=== PATIENT | female | born 1985 | race Caucasian/White ===

== ENCOUNTER 2017-12-17 04:58 | Emergency (ER) | payer MEDICAID ==
[~2017-12-17] VITALS: Ht 162.6 cm; Wt 61.9 kg
[2017-12-17 05:40] VITALS: BP 154/93
== END 2017-12-17 05:41 | disposition home or self-care (01) ==
LOC: ER 05:00
DX: I10 Essential (primary) hypertension (principal); F15.10 Other stimulant abuse, uncomplicated; F17.200 Nicotine dependence, unspecified, uncomplicated; Z88.6 Allergy status to analgesic agent
CPT/HCPCS: 99281

== ENCOUNTER 2018-01-05 05:15 | Emergency (ER) | payer MEDICAID ==
[~2018-01-05] VITALS: Ht 162.6 cm; Wt 59.0 kg
[2018-01-05] MEDS ORDERED: predniSONE 20 mg tablet PO ONE (07:55)
[2018-01-05] MEDS ORDERED: CefTRIAXone 250MG inj IM ONE (11:25)
[2018-01-05] MEDS ORDERED: azithromycin 250mg tablet PO ONE (11:25)
[2018-01-05] MEDS ORDERED: CefTRIAXone 250MG IM Kit w/LIDOcaine IM ONE (11:30)
[2018-01-05] MEDS ORDERED: VALA10002 PO (13:41)
[2018-01-05] MEDS ORDERED: ACYC5CRE2 TP (13:41)
[2018-01-05 14:09] VITALS: BP 127/86
== END 2018-01-05 14:11 | disposition left against medical advice (07) ==
LOC: ER 05:16
DX: A60.00 Herpesviral infection of urogenital system, unspecified (principal); I10 Essential (primary) hypertension; F15.10 Other stimulant abuse, uncomplicated; Z88.6 Allergy status to analgesic agent
CPT/HCPCS: 36415; 87210; 87491; 87591; 96372; 99284; J0696; J7512

== ENCOUNTER 2018-10-29 08:49 | Emergency (ER) | payer MEDICAID ==
[~2018-10-29] VITALS: Ht 162.6 cm; Wt 62.0 kg
[~2018-10-29 08:49] MED LIST: VALA10002 PO
[2018-10-29 09:06] VITALS: BP 145/97
[2018-10-29] MEDS ORDERED: AZIT-63 PO (10:32)
[2018-10-29] MEDS ORDERED: ALBU18HF2 INH (10:32)
== END 2018-10-29 11:17 | disposition home or self-care (01) ==
LOC: ER 08:49
DX: J20.9 Acute bronchitis, unspecified (principal); F15.10 Other stimulant abuse, uncomplicated; I10 Essential (primary) hypertension; Z88.5 Allergy status to narcotic agent; Z79.899 Other long term (current) drug therapy
CPT/HCPCS: 99283

== ENCOUNTER 2021-07-03 16:20 | Emergency (ER) | payer MEDICAID ==
[~2021-07-03] VITALS: Ht 162.6 cm; Wt 59.1 kg
[~2021-07-03 16:20] MED LIST changes: +ALBU18HF2 INH
[2021-07-03 17:14] VITALS: BP 130/89
[2021-07-03] MEDS ORDERED: ALBU6.7H9 INH (18:23)
[2021-07-03] MEDS ORDERED: IBUP-1984 PO (18:23)
[2021-07-03] MEDS ORDERED: DEXA4TAB67 PO (18:23)
--- NOTE | 2021-07-03 19:35 | NUR ---
CALLED AND LEFT MSG FOR PT TO CALL US BACK FOR LAB RESULTS - SHE IS COVID POSITIVE BUT THIS INFO WAS NOT LEFT ON VOIC[employer] FOR PRIVACY PURPOSES
== END 2021-07-03 19:04 | disposition home or self-care (01) ==
LOC: ER 16:20
DX: U07.1 COVID-19 (principal); F15.10 Other stimulant abuse, uncomplicated; I10 Essential (primary) hypertension; Z88.5 Allergy status to narcotic agent; Z79.899 Other long term (current) drug therapy
CPT/HCPCS: 71045; 87635; 99284; C9803

== ENCOUNTER 2021-07-06 13:24 | Inpatient (IN) | payer MEDICAID ==
[~2021-07-06] VITALS: Ht 162.6 cm; Wt 59.1 kg
[~2021-07-06 13:24] MED LIST changes: +ALBU6.7H9 INH; +DEXA4TAB67 PO; +IBUP-1984 PO
[2021-07-06] MEDS ORDERED: normal saline 1000ml 1,000 ML IV ONE ×4 (15:15→18:20)
[2021-07-06] MEDS ORDERED: diazepam inj 5 MG/ML inj. IV ONE (15:30)
[2021-07-06 17:18] LABS: BASOPHILS # (AUTO) 0.1 X10'3 (0-0.2); BASOPHILS % (AUTO) 0.8 % (0-1); EOSINOPHILS % (AUTO) 0 % (0-6); HEMATOCRIT 35.1 % (35.0-45.0); HEMOGLOBIN 11.8 g/dl (12.0-16.0); LYMPHOCYTES # (AUTO) 0.5 X10'3 (1.1-4.8); LYMPHOCYTES % (AUTO) 3.6 % (21-51); MEAN CORPUSCULAR HEMOGLOBIN 29.1 PG (27.0-31.0); MEAN CORPUSCULAR HGB CONC 33.5 g/dL (33.0-36.5); MEAN CORPUSCULAR VOLUME 86.8 FL (78-98); MONOCYTES # (AUTO) 0.4 X10'3 (0-0.9); MONOCYTES % (AUTO) 2.9 % (2-12); NEUTROPHILS # (AUTO) 13.7 X10'3 (1.8-7.7); NEUTROPHILS % (AUTO) 92.7 % (42-75); PLATELET COUNT 152 X10'3 (140-440); RED BLOOD COUNT 4.04 X10'6 (4.20-5.60); RED CELL DISTRIBUTION WIDTH 14.3 % (11.5-14.5); WHITE BLOOD COUNT 14.8 X10'3 (4.5-11.0)
[2021-07-06 17:32] LABS: D-DIMER 3.23 MG/L FEU (0-0.50)
[2021-07-06 17:34] LABS: ALANINE AMINOTRANSFERASE 19 U/L (12-78); ALBUMIN 2.9 G/DL (3.4-5.0); ALBUMIN/GLOBULIN RATIO 0.7 (1.1-1.5); ALKALINE PHOSPHATASE 74 IU/L (46-116); ANION GAP 14 (8-16); ASPARTATE AMINO TRANSFERASE 29 U/L (10-37); BILIRUBIN,TOTAL 0.4 MG/DL (0.1-1.0); BLOOD UREA NITROGEN 29 MG/DL (7-18); BUN/CREATININE RATIO 12.2 (6.6-38.0); CALCIUM 7.4 MG/DL (8.5-10.1); CHLORIDE 101 MMOL/L (99-107); CREATININE 2.37 MG/DL (0.40-0.90); GLUCOSE 95 MG/DL (70-104); POTASSIUM 3.7 MMOL/L (3.5-5.1); SODIUM 135 MMOL/L (135-145); TOTAL CARBON DIOXIDE 19.8 MMOL/L (24-32); eGFR 23 ML/MIN
[2021-07-06 17:38] LABS: HCG SERUM QL NEGATIVE
[2021-07-06] MEDS ORDERED: HYDROmorphone 1 mg/ml syringe IV ONE (17:45)
[2021-07-06 17:47] LABS: C-REACTIVE PROTEIN 24.92 MG/DL (0.0-0.5); FERRITIN 261 NG/ML (8-252); LACTATE DEHYDROGENASE 251 U/L (81-234)
[2021-07-06] MEDS ORDERED: iohexol 350MG/ML 100ml bottle IV ONE (18:35)
[2021-07-06] MEDS ORDERED: NO HOME MEDS (20:38)
--- NOTE | 2021-07-06 20:39 | NUR ---
pt states does not take home medication and does not like to take pills. pt states she did not fill previous rx from previous er visit.
[2021-07-06] MEDS ORDERED: magnesium 4gm in 100ml NS 100 ML IV PRN (20:50)
[2021-07-06] MEDS ORDERED: potassium Cl 40MEQ/1/2NS 520ml 520 ML IV PRN ×2 (20:50)
[2021-07-06] MEDS ORDERED: potassium Cl 20 mEq SR tablet PO PRN ×2 (20:50)
[2021-07-06] MEDS ORDERED: acetaminophen 325mg tablet PO PRN ×2 (20:50)
[2021-07-06] MEDS ORDERED: magnesium 2GM in 50ml NS 50 ML IV PRN (20:50)
[2021-07-06] MEDS ORDERED: ondansetron/PF 4mg/2ml inj IV PRN (20:50)
[2021-07-06] MEDS: CefTRIAXone 2gm/D5W 50ml BAG 50 ML IV SCH (21:39)
[2021-07-06] MEDS: normal saline 1000ml 1,000 ML IV SCH (21:39)
[2021-07-06] MEDS: azithromycin/NS 500mg/250ml 250 ML IV SCH (21:39)
--- NOTE | 2021-07-06 22:01 | NUR ---
clarified new rad orders for thoracic and lumbar due to pt having ct chest, abd, pelvis earlier today. per dr pierson, can do imaging in am.
[2021-07-06 22:43] LABS: CLARITY,URINE CLEAR (Clear); COLOR,URINE YELLOW (Yellow); GLUCOSE, URINE NEGATIVE (Neg); KETONES,URINE NEGATIVE (Neg); LEUKOCYTE ESTERASE ,URINE NEGATIVE (Neg); NITRITES, URINE NEGATIVE (Neg); OCCULT BLOOD,URINE LARGE (Neg); PROTEIN,URINE 30 mg/dl (Neg); UROBILINOGEN,URINE 0.2 E.U/dL (0.2-1.0)
[2021-07-06 22:56] LABS: BACTERIA,URINE NONE SEEN /HPF (Neg); MUCUS STRANDS NONE SEEN /LPF (Neg); SQUAMOUS EPITHELIAL CELL,UR FEW /LPF (FEW); UA COLLECTION TYPE CLN CATCH MIDSTREAM; WBC,URINE 0-4 /HPF (0-4)
[2021-07-06] MEDS: HYDROmorphone 2mg tablet PO PRN (23:58)
--- NOTE | 2021-07-07 00:25 | NUR ---
spoke with dr pierson regarding pt HR in 130s. pt has been running 120s-140s during stay, however pt is not currently recieving any medications or orders to lower HR. per dr pierson, "i will look into it".
[2021-07-07] MEDS ORDERED: atenolol 25mg tablet PO ONE (00:55)
[2021-07-07] MEDS: temazepam 15mg capsule PO PRN (01:37)
[2021-07-07] MEDS: HYDROmorphone 1 mg/ml syringe IV SCH ×4 (01:38→17:44)
[2021-07-07 03:47] LABS: BASOPHILS % (AUTO) 0.2 % (0-1); EOSINOPHILS % (AUTO) 0.1 % (0-6); HEMATOCRIT 32.3 % (35.0-45.0); HEMOGLOBIN 10.5 g/dl (12.0-16.0); LYMPHOCYTES # (AUTO) 0.5 X10'3 (1.1-4.8); LYMPHOCYTES % (AUTO) 3.6 % (21-51); MEAN CORPUSCULAR HEMOGLOBIN 28.9 PG (27.0-31.0); MEAN CORPUSCULAR HGB CONC 32.4 g/dL (33.0-36.5); MEAN CORPUSCULAR VOLUME 89.1 FL (78-98); MEAN PLATELET VOLUME 9.1 FL (7.4-10.4); MONOCYTES # (AUTO) 0.4 X10'3 (0-0.9); MONOCYTES % (AUTO) 2.7 % (2-12); NEUTROPHILS # (AUTO) 12.9 X10'3 (1.8-7.7); NEUTROPHILS % (AUTO) 93.4 % (42-75); PLATELET COUNT 142 X10'3 (140-440); RED BLOOD COUNT 3.63 X10'6 (4.20-5.60); RED CELL DISTRIBUTION WIDTH 14.1 % (11.5-14.5); WHITE BLOOD COUNT 13.9 X10'3 (4.5-11.0)
[2021-07-07 04:04] LABS: ALANINE AMINOTRANSFERASE 20 U/L (12-78); ALBUMIN 2.4 G/DL (3.4-5.0); ALBUMIN/GLOBULIN RATIO 0.7 (1.1-1.5); ALKALINE PHOSPHATASE 89 IU/L (46-116); ANION GAP 11 (8-16); ASPARTATE AMINO TRANSFERASE 40 U/L (10-37); BILIRUBIN,TOTAL 0.3 MG/DL (0.1-1.0); BLOOD UREA NITROGEN 27 MG/DL (7-18); BUN/CREATININE RATIO 15.5 (6.6-38.0); CALCIUM 6.8 MG/DL (8.5-10.1); CHLORIDE 102 MMOL/L (99-107); CREATININE 1.74 MG/DL (0.40-0.90); GLUCOSE 94 MG/DL (70-104); MAGNESIUM 1.2 MG/DL (1.5-2.4); POTASSIUM 3.7 MMOL/L (3.5-5.1); SODIUM 135 MMOL/L (135-145); TOTAL PROTEIN 5.9 G/DL (6.4-8.2); eGFR 33 ML/MIN
[2021-07-07 04:19] LABS: BANDS% (MANUAL) 6 % (0-10); LYMPHOCYTES % (MANUAL) 5 % (21-51); METAMYLEOCYTES% (MANUAL) 4 % (0-0); MONOCYTES % (MANUAL) 2 % (2-12); NEUTROPHILS % (MANUAL) 83 % (42-75); TOTAL CELLS COUNTED 100
[2021-07-07 04:20] LABS: PLATELET ESTIMATE NORMAL
[2021-07-07] MEDS: magnesium Cl slow-release 64mg tablet PO PRN (05:21)
[2021-07-07] MEDS: K and/or MAG REPLACEMENT MC SCH ×2 (08:00→20:00)
[2021-07-07] MEDS ORDERED: heparin, porcine 5000 units/ml vial SQ SCH (08:00)
[2021-07-07] MEDS: normal saline 1000ml 1,000 ML IV SCH ×2 (08:37→12:59)
[2021-07-07] MEDS: azithromycin/NS 500mg/250ml 250 ML IV SCH (08:38)
[2021-07-07] MEDS: CefTRIAXone 2gm/D5W 50ml BAG 50 ML IV SCH (08:38)
[2021-07-07] MEDS: HYDROmorphone 2mg tablet PO PRN (12:42)
[2021-07-07] MEDS ORDERED: enoxaparin 30mg/0.3ml syringe SUBCUT ONE (16:35)
[2021-07-07 20:00] VITALS: BP 125/73
[2021-07-07] MEDS ORDERED: furosemide 20 MG/2 ML vial IV SCH (20:00)
[2021-07-07] MEDS ORDERED: dexamethasone sod phosphate 10mg/ml inj IV SCH (20:00)
--- NOTE | 2021-07-07 20:00 | NUR ---
Received report from SHREYA Carrasquillo. Patient arrived to unit at 1944. Via wheelchair with belongings
[2021-07-07] MEDS: lactobacillus rhamnosus 10,000 MMU CELLS/CAPSULE PO SCH (22:04)
[2021-07-07] MEDS: dexamethasone 6 MG in NS 50ml IV soln IV SCH (22:12)
[2021-07-07] MEDS ORDERED: normal saline 1000ml 1,000 ML IV SCH (23:35)
[2021-07-08] VITALS (9 sets, daily range): BP systolic 76–128; BP diastolic 43–84
--- NOTE | 2021-07-08 00:01 | NUR ---
Informed Hospitalist about patient's hearrate sustaining in the 120's order for 25mg Atenolol Now ordered.
[2021-07-08] MEDS: HYDROmorphone 1 mg/ml syringe IV SCH ×4 (01:57→20:00)
[2021-07-08 02:48] LABS: ABG HCO3 17.7 mmol/L (22.0-26.0); ABG OXYGEN SATURATION 91.7 % (94-97); ABG PCO2 (T) 30.6 mmHg (32.0-45.0); ABG PO2 (T) 68.7 mmHg (75.0-100.0); ALLEN'S TEST POSITIVE; FCOHb 0.3 % (0.0-3.9); FO2Hb 91.4 % (94-97); PATIENT TEMPERATURE 38.3; TOTAL HEMOGLOBIN 10.5 G/dl (12.0-16.0)
[2021-07-08] MEDS ORDERED: atenolol 25mg tablet PO ONE ×2 (03:15)
--- NOTE | 2021-07-08 05:24 | NUR ---
Received order for a 250ml bolus for low BP. BP 76/43 and 80/46. Hospitalist would like the day time Hospitalist to address the order for Dilaudid 1mg/1ML Q 6hrs. Bolus infusing, at this time. Will continue to monitor BP at this time is 81/40, HR 73.
[2021-07-08] MEDS ORDERED: normal saline 250ml IV soln 250 ML IV ONE (05:25)
--- NOTE | 2021-07-08 07:15 | NUR ---
Patient in room COVID 08A. I have received report from SHREYA YAP and had the opportunity to ask questions and assume patient care.
[2021-07-08] MEDS ORDERED: atenolol 25mg tablet PO SCH (08:00)
[2021-07-08] MEDS: K and/or MAG REPLACEMENT MC SCH ×2 (08:00→20:00)
[2021-07-08] MEDS: magnesium Cl slow-release 64mg tablet PO PRN (11:09)
[2021-07-08] MEDS: dexamethasone 6 MG in NS 50ml IV soln IV SCH ×2 (11:09→20:53)
[2021-07-08] MEDS: lactobacillus rhamnosus 10,000 MMU CELLS/CAPSULE PO SCH ×2 (11:09→20:52)
[2021-07-08] MEDS: CefTRIAXone 2gm/D5W 50ml BAG 50 ML IV SCH (12:27)
[2021-07-08] MEDS: azithromycin/NS 500mg/250ml 250 ML IV SCH (12:27)
[2021-07-08] MEDS: enoxaparin 40mg/0.4ml syringe SUBCUT SCH ×2 (12:28→20:52)
[2021-07-08] MEDS ORDERED: levoFLOXACIN-Levaquin 500mg/D5 100 ML IV ONE (12:45)
[2021-07-08 15:02] LABS: BASOPHILS % (AUTO) 0.1 % (0-1); EOSINOPHILS % (AUTO) 0 % (0-6); HEMOGLOBIN 11.9 g/dl (12.0-16.0); LYMPHOCYTES # (AUTO) 0.7 X10'3 (1.1-4.8); LYMPHOCYTES % (AUTO) 4.6 % (21-51); MEAN CORPUSCULAR HGB CONC 32.9 g/dL (33.0-36.5); MEAN CORPUSCULAR VOLUME 88.1 FL (78-98); MEAN PLATELET VOLUME 9.5 FL (7.4-10.4); MONOCYTES # (AUTO) 0.5 X10'3 (0-0.9); MONOCYTES % (AUTO) 3.2 % (2-12); NEUTROPHILS # (AUTO) 13.4 X10'3 (1.8-7.7); NEUTROPHILS % (AUTO) 92.1 % (42-75); PLATELET COUNT 200 X10'3 (140-440); RED BLOOD COUNT 4.09 X10'6 (4.20-5.60); RED CELL DISTRIBUTION WIDTH 14.7 % (11.5-14.5); WHITE BLOOD COUNT 14.5 X10'3 (4.5-11.0)
[2021-07-08 15:14] LABS: D-DIMER 2.47 MG/L FEU (0-0.50)
[2021-07-08 15:17] LABS: ALANINE AMINOTRANSFERASE 35 U/L (12-78); ALBUMIN 2.2 G/DL (3.4-5.0); ALBUMIN/GLOBULIN RATIO 0.5 (1.1-1.5); ALKALINE PHOSPHATASE 93 IU/L (46-116); ANION GAP 11 (8-16); ASPARTATE AMINO TRANSFERASE 67 U/L (10-37); BILIRUBIN,TOTAL 0.3 MG/DL (0.1-1.0); BLOOD UREA NITROGEN 25 MG/DL (7-18); BUN/CREATININE RATIO 23.8 (6.6-38.0); CALCIUM 8.4 MG/DL (8.5-10.1); CHLORIDE 105 MMOL/L (99-107); CREATININE 1.05 MG/DL (0.40-0.90); GLUCOSE 146 MG/DL (70-104); MAGNESIUM 2.3 MG/DL (1.5-2.4); SODIUM 137 MMOL/L (135-145); TOTAL CARBON DIOXIDE 20.8 MMOL/L (24-32); TOTAL PROTEIN 6.8 G/DL (6.4-8.2); eGFR 59 ML/MIN
[2021-07-08] MEDS ORDERED: HYDROcodone/acetaminophen 10/325mg tab PO PRN (15:25)
[2021-07-08 15:33] LABS: C-REACTIVE PROTEIN 32.62 MG/DL (0.0-0.5)
[2021-07-08] MEDS: traMADol 50MG tablet PO PRN (17:15)
--- NOTE | 2021-07-08 18:32 | NUR ---
Patient in room COVID 08. I have received report from Regina CASH and had the opportunity to ask questions and assume patient care.
--- NOTE | 2021-07-08 18:34 | NUR ---
Problems reprioritized. Patient report given, questions answered & plan of care reviewed with SHREYA HUNT.
[2021-07-08] MEDS: carVEDilol 3.125mg tablet PO SCH (20:52)
[2021-07-09] MEDS: traMADol 50MG tablet PO PRN ×3 (00:20→21:35)
[2021-07-09] MEDS: HYDROmorphone 1 mg/ml syringe IV SCH ×3 (02:00→14:00)
[2021-07-09 03:00] VITALS: BP 145/79
--- NOTE | 2021-07-09 06:19 | NUR ---
Patient in room COVID 08A. I have received report from SHREYA HUNT and had the opportunity to ask questions and assume patient care.
--- NOTE | 2021-07-09 06:20 | NUR ---
Problems reprioritized. Patient report given, questions answered & plan of care reviewed with Regina CASH.
[2021-07-09 07:00] VITALS: BP 152/73
[2021-07-09] MEDS: dexamethasone 6 MG in NS 50ml IV soln IV SCH (07:44)
[2021-07-09] MEDS: azithromycin/NS 500mg/250ml 250 ML IV SCH (07:44)
[2021-07-09] MEDS: enoxaparin 40mg/0.4ml syringe SUBCUT SCH ×2 (07:45→21:22)
[2021-07-09] MEDS: carVEDilol 3.125mg tablet PO SCH ×2 (07:46→21:22)
[2021-07-09] MEDS: lactobacillus rhamnosus 10,000 MMU CELLS/CAPSULE PO SCH ×2 (07:46→21:21)
[2021-07-09] MEDS: K and/or MAG REPLACEMENT MC SCH ×2 (08:00→20:00)
[2021-07-09] MEDS ORDERED: furosemide 20 MG/2 ML vial IV SCH (08:00)
[2021-07-09] MEDS ORDERED: levoFLOXACIN-Levaquin 500mg/D5 100 ML IV SCH (08:00)
[2021-07-09 08:14] LABS: BASOPHILS % (AUTO) 0.1 % (0-1); EOSINOPHILS % (AUTO) 0 % (0-6); HEMATOCRIT 32.9 % (35.0-45.0); HEMOGLOBIN 10.8 g/dl (12.0-16.0); LYMPHOCYTES # (AUTO) 0.7 X10'3 (1.1-4.8); MEAN CORPUSCULAR HEMOGLOBIN 28.9 PG (27.0-31.0); MEAN CORPUSCULAR HGB CONC 32.8 g/dL (33.0-36.5); MEAN PLATELET VOLUME 9.4 FL (7.4-10.4); MONOCYTES # (AUTO) 0.6 X10'3 (0-0.9); MONOCYTES % (AUTO) 4.8 % (2-12); NEUTROPHILS # (AUTO) 10.6 X10'3 (1.8-7.7); NEUTROPHILS % (AUTO) 89.1 % (42-75); PLATELET COUNT 208 X10'3 (140-440); RED BLOOD COUNT 3.73 X10'6 (4.20-5.60); RED CELL DISTRIBUTION WIDTH 14.8 % (11.5-14.5); WHITE BLOOD COUNT 11.9 X10'3 (4.5-11.0)
[2021-07-09 08:36] LABS: ALANINE AMINOTRANSFERASE 33 U/L (12-78); ALBUMIN/GLOBULIN RATIO 0.5 (1.1-1.5); ALKALINE PHOSPHATASE 81 IU/L (46-116); ANION GAP 10 (8-16); ASPARTATE AMINO TRANSFERASE 47 U/L (10-37); BILIRUBIN,TOTAL 0.3 MG/DL (0.1-1.0); BLOOD UREA NITROGEN 20 MG/DL (7-18); BUN/CREATININE RATIO 28.2 (6.6-38.0); CALCIUM 8.7 MG/DL (8.5-10.1); CHLORIDE 108 MMOL/L (99-107); CREATININE 0.71 MG/DL (0.40-0.90); GLUCOSE 123 MG/DL (70-104); POTASSIUM 3.6 MMOL/L (3.5-5.1); SODIUM 140 MMOL/L (135-145); TOTAL CARBON DIOXIDE 21.7 MMOL/L (24-32); TOTAL PROTEIN 6.4 G/DL (6.4-8.2); eGFR > 90 ML/MIN
[2021-07-09] MEDS: lisinopril 2.5mg tablet PO SCH (08:59)
[2021-07-09 11:00] VITALS: BP 125/70
--- NOTE | 2021-07-09 11:22 | NUR ---
POSITIVE MRSA SWAB PAGER ID: [phone] MESSAGE: JENNY 8A: FYI: MRSA NASAL SWAB POSITIVE.
[2021-07-09 14:00] VITALS: BP 121/76
--- NOTE | 2021-07-09 16:02 | NUR ---
LOST PATIENT'S PIV THAT WAS IN THE RIGHT AC, AFTER RUNNING SEVERAL IV INFUSIONS THE IV IN HER SHOULD BEGAN TO HURT, I TURN OFF INFUSING. THIS NURSE LET DR KNOW PATIENT IS A HARD STICK AND WOULD BENEFIT FROM AN ULTRASOUND PLACED IV. DR IS OK WITH HOLDING IV INFUSIONS UNTIL ANOTHER IV CAN BE STARTED.
[2021-07-09 18:00] VITALS: BP_SYST 123; BP_SYST 124; BP_DIAS 103; BP_DIAS 90
--- NOTE | 2021-07-09 18:25 | NUR ---
Patient in room COVID 08. I have received report from Regina CASH and had the opportunity to ask questions and assume patient care.
--- NOTE | 2021-07-09 18:30 | NUR ---
Problems reprioritized. Patient report given, questions answered & plan of care reviewed with SHREYA HUNT.
--- NOTE | 2021-07-09 19:26 | NUR ---
Instructed by inside phone sales to order an EKG as the monitor in room 8A reading differently that the screen up at front desk associate. EKG same as previous, no new changes indicated.
[2021-07-09] MEDS: DEXAMETHASONE 6 MG TABLET PO SCH (21:21)
[2021-07-09 22:00] VITALS: BP 134/82
[2021-07-10 02:22] VITALS: BP 131/84
[2021-07-10 06:00] VITALS: BP 135/88
--- NOTE | 2021-07-10 06:30 | NUR ---
Problems reprioritized. Patient report given, questions answered & plan of care reviewed with Betty CASH.
--- NOTE | 2021-07-10 06:52 | NUR ---
Patient in room COVID 08A. I have received report from SHREYA HUNT and had the opportunity to ask questions and assume patient care.
[2021-07-10] MEDS: enoxaparin 40mg/0.4ml syringe SUBCUT SCH ×2 (08:06→20:39)
[2021-07-10] MEDS: carVEDilol 3.125mg tablet PO SCH ×2 (08:07→20:36)
[2021-07-10] MEDS: DEXAMETHASONE 6 MG TABLET PO SCH ×2 (08:07→20:36)
[2021-07-10] MEDS: lactobacillus rhamnosus 10,000 MMU CELLS/CAPSULE PO SCH ×2 (08:07→20:36)
[2021-07-10] MEDS: lisinopril 2.5mg tablet PO SCH (08:07)
[2021-07-10 09:09] LABS: BASOPHILS % (AUTO) 0.2 % (0-1); EOSINOPHILS % (AUTO) 0.1 % (0-6); HEMATOCRIT 34.3 % (35.0-45.0); HEMOGLOBIN 11.2 g/dl (12.0-16.0); LYMPHOCYTES # (AUTO) 0.8 X10'3 (1.1-4.8); MEAN CORPUSCULAR HEMOGLOBIN 28.8 PG (27.0-31.0); MEAN CORPUSCULAR HGB CONC 32.7 g/dL (33.0-36.5); MEAN CORPUSCULAR VOLUME 87.9 FL (78-98); MEAN PLATELET VOLUME 9.3 FL (7.4-10.4); MONOCYTES # (AUTO) 0.4 X10'3 (0-0.9); MONOCYTES % (AUTO) 5.8 % (2-12); NEUTROPHILS # (AUTO) 5.3 X10'3 (1.8-7.7); NEUTROPHILS % (AUTO) 81.9 % (42-75); PLATELET COUNT 225 X10'3 (140-440); RED CELL DISTRIBUTION WIDTH 14.8 % (11.5-14.5); WHITE BLOOD COUNT 6.5 X10'3 (4.5-11.0)
[2021-07-10 09:20] LABS: D-DIMER 4.07 MG/L FEU (0-0.50)
[2021-07-10 09:33] LABS: ALANINE AMINOTRANSFERASE 27 U/L (12-78); ALBUMIN 1.9 G/DL (3.4-5.0); ALBUMIN/GLOBULIN RATIO 0.4 (1.1-1.5); ALKALINE PHOSPHATASE 98 IU/L (46-116); ASPARTATE AMINO TRANSFERASE 26 U/L (10-37); BILIRUBIN,TOTAL 0.3 MG/DL (0.1-1.0); CALCIUM 8.3 MG/DL (8.5-10.1); CHLORIDE 105 MMOL/L (99-107); CREATININE 0.63 MG/DL (0.40-0.90); GLUCOSE 162 MG/DL (70-104); MAGNESIUM 1.7 MG/DL (1.5-2.4); POTASSIUM 3.4 MMOL/L (3.5-5.1); TOTAL CARBON DIOXIDE 24.4 MMOL/L (24-32); TOTAL PROTEIN 6.3 G/DL (6.4-8.2); eGFR > 90 ML/MIN
[2021-07-10 09:40] LABS: ANION GAP 12 (8-16); BLOOD UREA NITROGEN 23 MG/DL (7-18); BUN/CREATININE RATIO 36.5 (6.6-38.0); SODIUM 141 MMOL/L (135-145)
[2021-07-10 10:00] VITALS: BP 128/78
[2021-07-10] MEDS ORDERED: levoFLOXACIN 500mg tablet PO SCH (11:00)
--- NOTE | 2021-07-10 11:20 | NUR ---
Page Sent PAGER ID: [phone] MESSAGE: KELSEY [phone] RE: CAIN ALVARADO 8A PT'S K+ WAS 3.4, CAN I HAVE ORDERS TO REPLACE? THANK YOU!
[2021-07-10] MEDS: spironolactone 25 MG tablet PO SCH (11:24)
[2021-07-10] MEDS: traMADol 50MG tablet PO PRN ×2 (11:46→17:30)
--- NOTE | 2021-07-10 11:51 | NUR ---
Page Sent PAGER ID: [phone] MESSAGE: KELSEY [phone] RE: CAIN ALVARADO 8A PT IS EXPERIENCING PAIN IN HER LEFT LATERAL CHEST WRAPPING AROUND TO HER BACK. I GAVE HER TRAMADOL. IS THERE ANYTHING ELSE YOU WOULD LIKE ME TO DO? THANK YOU
[2021-07-10 14:00] VITALS: BP 128/82
[2021-07-10] MEDS ORDERED: potassium Cl 20 mEq SR tablet PO PRN (15:10)
[2021-07-10] MEDS ORDERED: magnesium 4gm in 100ml NS 100 ML IV PRN (15:10)
[2021-07-10] MEDS ORDERED: magnesium Cl slow-release 64mg tablet PO PRN (15:10)
[2021-07-10] MEDS ORDERED: potassium Cl 40MEQ/1/2NS 520ml 520 ML IV PRN (15:10)
[2021-07-10] MEDS: potassium Cl 20 mEq SR tablet PO PRN ×2 (15:56→20:40)
[2021-07-10] MEDS: cefazolin/dext.iso 2gm/100ml 100 ML IV SCH (15:56)
[2021-07-10 18:00] VITALS: BP 145/102
--- NOTE | 2021-07-10 18:25 | NUR ---
Problems reprioritized. Patient report given, questions answered & plan of care reviewed with SHREYA HUNT.
--- NOTE | 2021-07-10 18:30 | NUR ---
Patient in room COVID 08. I have received report from Betty Hickey and had the opportunity to ask questions and assume patient care.
[2021-07-10] MEDS: K and/or MAG REPLACEMENT MC SCH (20:47)
[2021-07-10 22:00] VITALS: BP 134/77
[2021-07-11] MEDS: traMADol 50MG tablet PO PRN ×3 (00:58→18:58)
[2021-07-11 02:00] VITALS: BP 125/88
[2021-07-11] MEDS: cefazolin/dext.iso 2gm/100ml 100 ML IV SCH ×3 (02:38→18:52)
--- NOTE | 2021-07-11 02:49 | NUR ---
Patients AbX hung late as PIV came out accidently when patient used BSc.
[2021-07-11 06:00] VITALS: BP 138/89
--- NOTE | 2021-07-11 06:24 | NUR ---
Problems reprioritized. Patient report given, questions answered & plan of care reviewed with Izabela CASH.
[2021-07-11] MEDS: K and/or MAG REPLACEMENT MC SCH ×2 (08:00→20:00)
[2021-07-11 08:22] LABS: BASOPHILS % (AUTO) 0.1 % (0-1); EOSINOPHILS % (AUTO) 0 % (0-6); HEMOGLOBIN 11.9 g/dl (12.0-16.0); LYMPHOCYTES % (AUTO) 11.2 % (21-51); MEAN CORPUSCULAR HEMOGLOBIN 29.1 PG (27.0-31.0); MEAN CORPUSCULAR VOLUME 88.4 FL (78-98); MEAN PLATELET VOLUME 9.3 FL (7.4-10.4); MONOCYTES # (AUTO) 0.7 X10'3 (0-0.9); MONOCYTES % (AUTO) 7.7 % (2-12); NEUTROPHILS # (AUTO) 7.4 X10'3 (1.8-7.7); PLATELET COUNT 302 X10'3 (140-440); RED BLOOD COUNT 4.08 X10'6 (4.20-5.60); RED CELL DISTRIBUTION WIDTH 14.8 % (11.5-14.5); WHITE BLOOD COUNT 9.1 X10'3 (4.5-11.0)
[2021-07-11 08:33] LABS: D-DIMER 3.61 MG/L FEU (0-0.50)
[2021-07-11 08:37] LABS: ALANINE AMINOTRANSFERASE 25 U/L (12-78); ALBUMIN/GLOBULIN RATIO 0.4 (1.1-1.5); ALKALINE PHOSPHATASE 87 IU/L (46-116); ANION GAP 10 (8-16); ASPARTATE AMINO TRANSFERASE 20 U/L (10-37); BILIRUBIN,TOTAL 0.3 MG/DL (0.1-1.0); BLOOD UREA NITROGEN 23 MG/DL (7-18); BUN/CREATININE RATIO 37.7 (6.6-38.0); CALCIUM 8.2 MG/DL (8.5-10.1); CHLORIDE 107 MMOL/L (99-107); CREATININE 0.61 MG/DL (0.40-0.90); GLUCOSE 114 MG/DL (70-104); MAGNESIUM 1.8 MG/DL (1.5-2.4); POTASSIUM 4.5 MMOL/L (3.5-5.1); SODIUM 141 MMOL/L (135-145); TOTAL CARBON DIOXIDE 24.4 MMOL/L (24-32); TOTAL PROTEIN 6.6 G/DL (6.4-8.2); eGFR > 90 ML/MIN
[2021-07-11] MEDS: lactobacillus rhamnosus 10,000 MMU CELLS/CAPSULE PO SCH ×2 (09:26→20:24)
[2021-07-11] MEDS: DEXAMETHASONE 6 MG TABLET PO SCH ×2 (09:26→20:24)
[2021-07-11] MEDS: carVEDilol 3.125mg tablet PO SCH ×2 (09:27→20:24)
[2021-07-11] MEDS: enoxaparin 40mg/0.4ml syringe SUBCUT SCH ×2 (09:28→20:24)
[2021-07-11] MEDS: spironolactone 25 MG tablet PO SCH (09:28)
[2021-07-11] MEDS: lisinopril 2.5mg tablet PO SCH (09:33)
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
[2021-07-11 09:58] LABS: PLATELET ESTIMATE NORMAL; TOTAL CELLS COUNTED 100
[2021-07-11 10:00] VITALS: BP 140/96
[2021-07-11 10:00] LABS: BURR CELLS FEW; ELLIPTOCYTES FEW; SCHISTOCYTES FEW
[2021-07-11] MEDS ORDERED: lactose-reduced food (Ensure Enlive) - 237ml bottle PO SCH (13:00)
[2021-07-11 18:00] VITALS: BP 159/96
--- NOTE | 2021-07-11 18:45 | NUR ---
Problems reprioritized. Patient report given, questions answered & plan of care reviewed with Dayana CASH.
[2021-07-11] MEDS: temazepam 15mg capsule PO PRN (20:28)
[2021-07-11 22:00] VITALS: BP 141/85
[2021-07-12] MEDS: cefazolin/dext.iso 2gm/100ml 100 ML IV SCH ×3 (00:57→16:47)
[2021-07-12] MEDS: traMADol 50MG tablet PO PRN ×3 (01:01→22:09)
[2021-07-12 02:00] VITALS: BP 138/83
[2021-07-12 07:18] LABS: BASOPHILS % (AUTO) 0.1 % (0-1); EOSINOPHILS % (AUTO) 0 % (0-6); HEMOGLOBIN 12.1 g/dl (12.0-16.0); LYMPHOCYTES # (AUTO) 1.3 X10'3 (1.1-4.8); LYMPHOCYTES % (AUTO) 10.7 % (21-51); MEAN CORPUSCULAR HEMOGLOBIN 28.7 PG (27.0-31.0); MEAN CORPUSCULAR HGB CONC 32.8 g/dL (33.0-36.5); MEAN CORPUSCULAR VOLUME 87.5 FL (78-98); MEAN PLATELET VOLUME 8.7 FL (7.4-10.4); MONOCYTES # (AUTO) 0.5 X10'3 (0-0.9); MONOCYTES % (AUTO) 4.2 % (2-12); NEUTROPHILS # (AUTO) 10.3 X10'3 (1.8-7.7); PLATELET COUNT 317 X10'3 (140-440); RED BLOOD COUNT 4.23 X10'6 (4.20-5.60); WHITE BLOOD COUNT 12.1 X10'3 (4.5-11.0)
--- NOTE | 2021-07-12 07:35 | NUR ---
Problems reprioritized. Patient report given, questions answered & plan of care reviewed with SHREYA BOWERS.
[2021-07-12 07:45] LABS: ALANINE AMINOTRANSFERASE 20 U/L (12-78); ALBUMIN/GLOBULIN RATIO 0.5 (1.1-1.5); ALKALINE PHOSPHATASE 84 IU/L (46-116); ANION GAP 11 (8-16); ASPARTATE AMINO TRANSFERASE 17 U/L (10-37); BILIRUBIN,TOTAL 0.4 MG/DL (0.1-1.0); BLOOD UREA NITROGEN 13 MG/DL (7-18); BUN/CREATININE RATIO 25.5 (6.6-38.0); CALCIUM 7.9 MG/DL (8.5-10.1); CHLORIDE 103 MMOL/L (99-107); CREATININE 0.51 MG/DL (0.40-0.90); GLUCOSE 109 MG/DL (70-104); MAGNESIUM 1.6 MG/DL (1.5-2.4); POTASSIUM 4.3 MMOL/L (3.5-5.1); SODIUM 139 MMOL/L (135-145); TOTAL CARBON DIOXIDE 25.2 MMOL/L (24-32); TOTAL PROTEIN 6.4 G/DL (6.4-8.2); eGFR > 90 ML/MIN
[2021-07-12] MEDS: K and/or MAG REPLACEMENT MC SCH ×2 (08:00→20:00)
[2021-07-12 08:36] LABS: PLATELET ESTIMATE NORMAL; TOTAL CELLS COUNTED 100
[2021-07-12 08:37] LABS: ELLIPTOCYTES FEW
[2021-07-12 08:57] VITALS: BP 126/92
[2021-07-12] MEDS: spironolactone 25 MG tablet PO SCH (10:34)
[2021-07-12] MEDS: lactobacillus rhamnosus 10,000 MMU CELLS/CAPSULE PO SCH ×2 (10:34→22:07)
[2021-07-12] MEDS: enoxaparin 40mg/0.4ml syringe SUBCUT SCH ×2 (10:34→22:07)
[2021-07-12] MEDS: carVEDilol 3.125mg tablet PO SCH ×2 (10:34→22:06)
[2021-07-12] MEDS: DEXAMETHASONE 6 MG TABLET PO SCH ×2 (10:34→22:06)
[2021-07-12] MEDS: lisinopril 2.5mg tablet PO SCH (10:35)
[2021-07-12 11:18] VITALS: BP 117/89
[2021-07-12] MEDS: lactose-reduced food (Ensure Enlive) - 237ml bottle PO SCH (17:39)
[2021-07-12 22:00] VITALS: BP 137/88
[2021-07-13] MEDS: cefazolin/dext.iso 2gm/100ml 100 ML IV SCH ×2 (00:19→08:12)
[2021-07-13 00:30] VITALS: BP 128/88
[2021-07-13 03:00] VITALS: BP 146/88
--- NOTE | 2021-07-13 06:30 | NUR ---
Patient in room COVID 08. I have received report from toy consultant RN and had the opportunity to ask questions and assume patient care.
[2021-07-13 07:00] VITALS: BP 129/84
[2021-07-13] MEDS: K and/or MAG REPLACEMENT MC SCH (08:00)
[2021-07-13] MEDS: DEXAMETHASONE 6 MG TABLET PO SCH (08:11)
[2021-07-13] MEDS: enoxaparin 40mg/0.4ml syringe SUBCUT SCH (08:11)
[2021-07-13] MEDS: lactobacillus rhamnosus 10,000 MMU CELLS/CAPSULE PO SCH (08:11)
[2021-07-13] MEDS: spironolactone 25 MG tablet PO SCH (08:12)
[2021-07-13] MEDS: lactose-reduced food (Ensure Enlive) - 237ml bottle PO SCH ×2 (08:12→13:09)
[2021-07-13] MEDS: carVEDilol 3.125mg tablet PO SCH (08:12)
[2021-07-13] MEDS: lisinopril 2.5mg tablet PO SCH (08:15)
[2021-07-13 09:07] LABS: BASOPHILS % (AUTO) 0.1 % (0-1); EOSINOPHILS % (AUTO) 0 % (0-6); HEMATOCRIT 35.5 % (35.0-45.0); HEMOGLOBIN 12.4 g/dl (12.0-16.0); LYMPHOCYTES # (AUTO) 1.9 X10'3 (1.1-4.8); LYMPHOCYTES % (AUTO) 13.1 % (21-51); MEAN CORPUSCULAR HEMOGLOBIN 30.4 PG (27.0-31.0); MEAN CORPUSCULAR VOLUME 86.9 FL (78-98); MEAN PLATELET VOLUME 8.9 FL (7.4-10.4); MONOCYTES # (AUTO) 0.7 X10'3 (0-0.9); MONOCYTES % (AUTO) 4.5 % (2-12); NEUTROPHILS # (AUTO) 12.1 X10'3 (1.8-7.7); NEUTROPHILS % (AUTO) 82.3 % (42-75); PLATELET COUNT 361 X10'3 (140-440); RED BLOOD COUNT 4.09 X10'6 (4.20-5.60); RED CELL DISTRIBUTION WIDTH 14.6 % (11.5-14.5); WHITE BLOOD COUNT 14.7 X10'3 (4.5-11.0)
[2021-07-13 09:25] LABS: ALANINE AMINOTRANSFERASE 16 U/L (12-78); ALBUMIN/GLOBULIN RATIO 0.4 (1.1-1.5); ALKALINE PHOSPHATASE 80 IU/L (46-116); ANION GAP 6 (8-16); ASPARTATE AMINO TRANSFERASE 13 U/L (10-37); BILIRUBIN,TOTAL 0.4 MG/DL (0.1-1.0); BLOOD UREA NITROGEN 13 MG/DL (7-18); BUN/CREATININE RATIO 22.8 (6.6-38.0); C-REACTIVE PROTEIN 2.71 MG/DL (0.0-0.5); CALCIUM 8.2 MG/DL (8.5-10.1); CHLORIDE 103 MMOL/L (99-107); CREATININE 0.57 MG/DL (0.40-0.90); GLUCOSE 120 MG/DL (70-104); MAGNESIUM 1.6 MG/DL (1.5-2.4); POTASSIUM 4.1 MMOL/L (3.5-5.1); SODIUM 137 MMOL/L (135-145); TOTAL CARBON DIOXIDE 27.8 MMOL/L (24-32); TOTAL PROTEIN 6.8 G/DL (6.4-8.2); eGFR > 90 ML/MIN
[2021-07-13 09:35] LABS: D-DIMER 2.92 MG/L FEU (0-0.50)
--- NOTE | 2021-07-13 10:19 | NUR ---
Encouraged patient to eat more. Educated that if she doesn't want to eat food to try and drink Ensure Shakes provided. Pt verbalized understanding.
[2021-07-13 11:00] VITALS: BP 129/86
--- NOTE | 2021-07-13 11:20 | NUR ---
Pt tolerating RA for about 20 min. O2 sat 90% Congested but no SOB. Pt says she has someone who can pick her up and has a place to stay. Updated mother Trixie regarding d/c plan. States she is flying from [place] and will be here tomorrow morning.
[2021-07-13] MEDS ORDERED: LISI2.5T14 PO (11:50)
[2021-07-13] MEDS ORDERED: DEXA6TAB PO (11:50)
[2021-07-13] MEDS ORDERED: COR3.125T PO (11:50)
[2021-07-13] MEDS ORDERED: HYDR-3965 PO (11:50)
[2021-07-13] MEDS ORDERED: LINE600T11 PO (11:50)
--- NOTE | 2021-07-13 11:59 | NUR ---
Oxywalk done. O2 sat sustained 89-90% on RA. Pt ambulated with FWW 100 feet. Pt tolerated well and made it back to bed safely. VSS
--- NOTE | 2021-07-13 13:21 | NUR ---
PT belongings searched with consent. Found 2 small plastic bags filled with unknown white crystals within a pocket of her purse. They were confiscated and given to the Charge Nurse Trixie.
--- NOTE | 2021-07-13 14:48 | NUR ---
Pt ok to d/c. Instructions and follow up explained to patient and she verbalized understanding. ID and IV band removed. Pt transported by wheelchair and ambulated to care independently. VSS.
[2021-07-14] MEDS ORDERED: DEXA6TAB PO (14:37)
[2021-07-14] MEDS ORDERED: CARV3.122 PO (14:37)
[2021-07-14] MEDS ORDERED: LISI2.5T89 PO (14:37)
[2021-07-14] MEDS ORDERED: HYDR-3964 PO (14:37)
[2021-07-14] MEDS ORDERED: LINE600T11 PO (14:37)
== END 2021-07-13 14:40 | disposition home or self-care (01) | DRG 720 ==
LOC: ER 13:25 → ED HOLD 21:10 → COVID IP 07-07 19:47
PROVIDERS: ADMIT Internal Medicine; ATTEND Internal Medicine
PROC: B32T1ZZ Computerized Tomography (CT Scan) of Left Pulmonary Artery using Low Osmolar Contrast (ICD-10-PCS; principal; 2021-07-06)
PROC: B3201ZZ Computerized Tomography (CT Scan) of Thoracic Aorta using Low Osmolar Contrast (ICD-10-PCS; 2021-07-06)
PROC: B32S1ZZ Computerized Tomography (CT Scan) of Right Pulmonary Artery using Low Osmolar Contrast (ICD-10-PCS; 2021-07-06)
PROC: BW211ZZ Computerized Tomography (CT Scan) of Abdomen and Pelvis using Low Osmolar Contrast (ICD-10-PCS; 2021-07-06)
DX: A41.01 Sepsis due to Methicillin susceptible Staphylococcus aureus (principal); J96.01 Acute respiratory failure with hypoxia; N17.0 Acute kidney failure with tubular necrosis; J12.82 Pneumonia due to coronavirus disease 2019; I50.21 Acute systolic (congestive) heart failure; E43 Unspecified severe protein-calorie malnutrition; U07.1 COVID-19; J15.9 Unspecified bacterial pneumonia; I42.9 Cardiomyopathy, unspecified; I11.0 Hypertensive heart disease with heart failure; F12.90 Cannabis use, unspecified, uncomplicated; M43.8X4 Other specified deforming dorsopathies, thoracic region; F19.10 Other psychoactive substance abuse, uncomplicated; E86.0 Dehydration; B95.1 Streptococcus, group B, as the cause of diseases classified elsewhere; M54.9 Dorsalgia, unspecified; F15.90 Other stimulant use, unspecified, uncomplicated; F17.210 Nicotine dependence, cigarettes, uncomplicated; I44.7 Left bundle-branch block, unspecified; K50.90 Crohn's disease, unspecified, without complications; Z79.899 Other long term (current) drug therapy; Z88.5 Allergy status to narcotic agent; Z90.49 Acquired absence of other specified parts of digestive tract; Z71.51 Drug abuse counseling and surveillance of drug abuser; Z71.6 Tobacco abuse counseling; Z68.22 Body mass index [BMI] 22.0-22.9, adult
CPT/HCPCS: 36415; 36600; 71045; 71275; 72074; 72100; 74177; 76937; 80053; 81001; 82728; 82803; 83605; 83615; 83735; 83880; 84145; 84443; 84484; 84703; 85007; 85018; 85025; 85379; 85384; 86140; 87040; 87077; 87081; 87186; 93005; 93306; 96375; 97110; 97161; 99285; G0378; J0456; J0696; J1100; J1170; J1644; J1650; J1940; J1956; J3360; J7030; J7050; J8540; Q9967

== ENCOUNTER 2021-07-14 10:21 | Inpatient (IN) | payer MEDICAID ==
[~2021-07-14] VITALS: Ht 162.6 cm; Wt 60.7 kg
[~2021-07-14 10:21] MED LIST changes: -ALBU18HF2 INH; -ALBU6.7H9 INH; +COR3.125T PO; -DEXA4TAB67 PO; +DEXA6TAB PO; +HYDR-3965 PO; -IBUP-1984 PO; +LINE600T11 PO; +LISI2.5T14 PO; -VALA10002 PO
[2021-07-14] MEDS ORDERED: HYDROcodone/acetaminophen 10/325mg tab PO ONE (11:00)
[2021-07-14 11:46] LABS: BASOPHILS # (AUTO) 0.1 X10'3 (0-0.2); EOSINOPHILS # (AUTO) 0.1 X10'3 (0-0.9); EOSINOPHILS % (AUTO) 0.4 % (0-6); HEMOGLOBIN 13.5 g/dl (12.0-16.0)
[2021-07-14 11:48] LABS: BASOPHILS % (AUTO) 0.2 % (0-1); HEMATOCRIT 41.8 % (35.0-45.0); LYMPHOCYTES # (AUTO) 2.7 X10'3 (1.1-4.8); LYMPHOCYTES % (AUTO) 8.1 % (21-51); MEAN CORPUSCULAR HEMOGLOBIN 28.5 PG (27.0-31.0); MEAN CORPUSCULAR HGB CONC 32.4 g/dL (33.0-36.5); MEAN CORPUSCULAR VOLUME 87.9 FL (78-98); MEAN PLATELET VOLUME 8.6 FL (7.4-10.4); MONOCYTES # (AUTO) 1.2 X10'3 (0-0.9); MONOCYTES % (AUTO) 3.6 % (2-12); NEUTROPHILS # (AUTO) 29.4 X10'3 (1.8-7.7); NEUTROPHILS % (AUTO) 87.7 % (42-75); PLATELET COUNT 523 X10'3 (140-440); RED BLOOD COUNT 4.76 X10'6 (4.20-5.60); RED CELL DISTRIBUTION WIDTH 14.9 % (11.5-14.5)
[2021-07-14 11:50] LABS: WHITE BLOOD COUNT 33.6 X10'3 (4.5-11.0)
[2021-07-14 12:03] LABS: ALANINE AMINOTRANSFERASE 21 U/L (12-78); ALBUMIN 2.2 G/DL (3.4-5.0); ALBUMIN/GLOBULIN RATIO 0.5 (1.1-1.5); ALKALINE PHOSPHATASE 75 IU/L (46-116); ANION GAP 9 (8-16); ASPARTATE AMINO TRANSFERASE 18 U/L (10-37); BILIRUBIN,TOTAL 0.5 MG/DL (0.1-1.0); BLOOD UREA NITROGEN 15 MG/DL (7-18); BUN/CREATININE RATIO 24.2 (6.6-38.0); CHLORIDE 106 MMOL/L (99-107); CREATININE 0.62 MG/DL (0.40-0.90); GLUCOSE 83 MG/DL (70-104); POTASSIUM 3.6 MMOL/L (3.5-5.1); SODIUM 140 MMOL/L (135-145); TOTAL CARBON DIOXIDE 24.6 MMOL/L (24-32); TOTAL PROTEIN 6.7 G/DL (6.4-8.2); eGFR > 90 ML/MIN
[2021-07-14 12:08] LABS: PLATELET ESTIMATE INCREASED; TOTAL CELLS COUNTED 100
[2021-07-14 13:10] LABS: D-DIMER 9.39 MG/L FEU (0-0.50)
[2021-07-14] MEDS ORDERED: ondansetron/PF 4mg/2ml inj IV PRN (13:25)
[2021-07-14] MEDS ORDERED: acetaminophen 325mg tablet PO PRN ×2 (13:25)
[2021-07-14] MEDS ORDERED: magnesium hydroxide 30ml (MOM) UD suspension PO PRN (13:25)
[2021-07-14] MEDS ORDERED: morphine 2 MG/ML inj. syringe IV PRN ×2 (13:25→23:10)
[2021-07-14] MEDS ORDERED: mag hydrox/Alum hydrox/simeth 30ml oral suspension PO PRN (13:25)
[2021-07-14 14:00] LABS: PHOSPHORUS 3.9 MG/DL (2.3-4.5)
[2021-07-14] MEDS ORDERED: LINE600T11 PO (14:37)
[2021-07-14] MEDS ORDERED: LISI2.5T89 PO (14:37)
[2021-07-14] MEDS ORDERED: CARV3.122 PO (14:37)
[2021-07-14] MEDS ORDERED: DEXA6TAB PO (14:37)
[2021-07-14] MEDS ORDERED: HYDR-3964 PO (14:37)
[2021-07-14] MEDS: ceFAZolin/D5W- 1GM premix 50 ML IV SCH (15:38)
[2021-07-14] MEDS: dextrose 5%-1/2 normal saline 1,000 ML IV SCH (15:39)
[2021-07-14] MEDS: HYDROcodone/acetaminophen 10/325mg tab PO PRN ×2 (15:40→20:55)
[2021-07-14] MEDS ORDERED: HYDROmorphone inj. 0.5 MG/0.5 ML DISP.SYRIN IV ONE (16:00)
[2021-07-14 16:24] LABS: LYMPHOCYTES,BODY FLUID 18 %; MONOCYTES,BODY FLUID 5 %; NEUTROPHILS,BODY FLUID 77 %
[2021-07-14 16:25] LABS: BF RBC COUNT 4650 /CU MM; BF WBC COUNT 943 /CU MM (0-1000); BFAPPEAR CLOUDY; BFCOLOR YELLOW; BFVOLUME 50 ML
[2021-07-14 16:26] LABS: LDH,BODY FLUID 1067 U/L
[2021-07-14 16:58] LABS: GLUCOSE,BODY FLUID 1 MG/DL
[2021-07-14] MEDS: docusate sod 100mg capsule PO SCH (20:00)
--- NOTE | 2021-07-14 22:24 | NUR ---
Patient in room ED 11. I have received report from MILAD CASH and had the opportunity to ask questions and assume patient care.
[2021-07-14 22:53] VITALS: BP 130/70
[2021-07-14] MEDS: morphine 2 MG/ML inj. syringe IV PRN (23:15)
[2021-07-15] VITALS (9 sets, daily range): BP systolic 85–105; BP diastolic 54–70
[2021-07-15] MEDS: dextrose 5%-1/2 normal saline 1,000 ML IV SCH ×2 (00:08→09:25)
[2021-07-15] MEDS: ceFAZolin/D5W- 1GM premix 50 ML IV SCH ×3 (00:08→16:28)
[2021-07-15] MEDS: HYDROcodone/acetaminophen 10/325mg tab PO PRN ×3 (01:21→18:46)
[2021-07-15] MEDS: morphine 2 MG/ML inj. syringe IV PRN ×2 (04:59→15:09)
--- NOTE | 2021-07-15 06:10 | NUR ---
Patient in room PCU 3018. I have received report from SHREYA Hurst and had the opportunity to ask questions and assume patient care.
--- NOTE | 2021-07-15 06:30 | NUR ---
Problems reprioritized. Patient report given, questions answered & plan of care reviewed with FOX CASH.
[2021-07-15 07:05] LABS: HEMATOCRIT 40.5 % (35.0-45.0); HEMOGLOBIN 13.3 g/dl (12.0-16.0); MEAN CORPUSCULAR HEMOGLOBIN 28.9 PG (27.0-31.0); MEAN CORPUSCULAR HGB CONC 32.9 g/dL (33.0-36.5); MEAN CORPUSCULAR VOLUME 87.8 FL (78-98); MEAN PLATELET VOLUME 8.8 FL (7.4-10.4); PLATELET COUNT 496 X10'3 (140-440); RED BLOOD COUNT 4.62 X10'6 (4.20-5.60); RED CELL DISTRIBUTION WIDTH 14.9 % (11.5-14.5)
[2021-07-15 07:47] LABS: ALANINE AMINOTRANSFERASE 12 U/L (12-78); ALBUMIN 1.8 G/DL (3.4-5.0); ALBUMIN/GLOBULIN RATIO 0.4 (1.1-1.5); ALKALINE PHOSPHATASE 75 IU/L (46-116); ANION GAP 8 (8-16); ASPARTATE AMINO TRANSFERASE 10 U/L (10-37); BILIRUBIN,TOTAL 0.7 MG/DL (0.1-1.0); BLOOD UREA NITROGEN 16 MG/DL (7-18); BUN/CREATININE RATIO 24.6 (6.6-38.0); CALCIUM 7.8 MG/DL (8.5-10.1); CHLORIDE 104 MMOL/L (99-107); CREATININE 0.65 MG/DL (0.40-0.90); GLUCOSE 117 MG/DL (70-104); POTASSIUM 4.6 MMOL/L (3.5-5.1); SODIUM 137 MMOL/L (135-145); TOTAL CARBON DIOXIDE 24.8 MMOL/L (24-32); TOTAL PROTEIN 6.5 G/DL (6.4-8.2); eGFR > 90 ML/MIN
[2021-07-15 07:55] LABS: TOTAL CELLS COUNTED 100
[2021-07-15 07:56] LABS: PLATELET ESTIMATE INCREASED
[2021-07-15] MEDS: docusate sod 100mg capsule PO SCH ×2 (08:00→20:30)
--- NOTE | 2021-07-15 08:20 | NUR ---
Paged Dr. Billy PAGER ID: [phone] MESSAGE: TEVIN Barragan [id number]; WBC 44.0 - Monisha CASH [phone]
[2021-07-15] MEDS: lisinopril 2.5mg tablet PO SCH (08:36)
[2021-07-15] MEDS: furosemide 20 MG/2 ML vial IV SCH (08:37)
--- NOTE | 2021-07-15 14:43 | NUR ---
Paged Dr. Billy PAGER ID: [phone] MESSAGE: TEVIN Barragan [id number]; just FYI central line is in. Monisha CASH [phone]
[2021-07-15] MEDS: HYDROmorphone inj. 0.5 MG/0.5 ML DISP.SYRIN IV PRN ×2 (16:28→23:41)
--- NOTE | 2021-07-15 18:16 | NUR ---
Patient in room PCU 3018. I have received report from Monisha CASH and had the opportunity to ask questions and assume patient care.
--- NOTE | 2021-07-15 18:22 | NUR ---
Unable to DART Patient is unable to be darted at this time due to confusion and anxiety. She is unable to answer questions at this time.
--- NOTE | 2021-07-15 18:23 | NUR ---
Problems reprioritized. Patient report given, questions answered & plan of care reviewed with SHREYA Salas.
[2021-07-15] MEDS: carVEDilol 3.125mg tablet PO SCH (18:46)
[2021-07-15] MEDS ORDERED: DOBUTamine-DoBUTrex 500mg/D5W 250 ML IV SCH ×2 (19:25→21:49)
[2021-07-15] MEDS ORDERED: normal saline 1000ml 1,000 ML IV SCH (19:30)
[2021-07-15] MEDS ORDERED: enoxaparin 40mg/0.4ml syringe SUBCUT SCH (20:00)
[2021-07-15 20:27] LABS: BASOPHILS # (AUTO) 0.1 X10'3 (0-0.2); BASOPHILS % (AUTO) 0.2 % (0-1); MEAN CORPUSCULAR HGB CONC 32.3 g/dL (33.0-36.5)
[2021-07-15 20:28] LABS: EOSINOPHILS # (AUTO) 0.5 X10'3 (0-0.9); EOSINOPHILS % (AUTO) 1.1 % (0-6); HEMATOCRIT 34.9 % (35.0-45.0); HEMOGLOBIN 11.3 g/dl (12.0-16.0); LYMPHOCYTES # (AUTO) 2.5 X10'3 (1.1-4.8); LYMPHOCYTES % (AUTO) 6.1 % (21-51); MEAN CORPUSCULAR HEMOGLOBIN 28.4 PG (27.0-31.0); MEAN CORPUSCULAR VOLUME 87.8 FL (78-98); MEAN PLATELET VOLUME 8.6 FL (7.4-10.4); MONOCYTES # (AUTO) 1.9 X10'3 (0-0.9); MONOCYTES % (AUTO) 4.7 % (2-12); NEUTROPHILS # (AUTO) 36.3 X10'3 (1.8-7.7); NEUTROPHILS % (AUTO) 87.9 % (42-75); PLATELET COUNT 509 X10'3 (140-440); RED BLOOD COUNT 3.97 X10'6 (4.20-5.60); RED CELL DISTRIBUTION WIDTH 15.1 % (11.5-14.5)
[2021-07-15] MEDS: dexamethasone 4mg/ml inj IV SCH (20:29)
[2021-07-15 20:37] LABS: D-DIMER 4.09 MG/L FEU (0-0.50)
[2021-07-15 20:40] LABS: ALANINE AMINOTRANSFERASE 13 U/L (12-78); ALBUMIN 1.6 G/DL (3.4-5.0); ALBUMIN/GLOBULIN RATIO 0.4 (1.1-1.5); ALKALINE PHOSPHATASE 88 IU/L (46-116); ANION GAP 8 (8-16); ASPARTATE AMINO TRANSFERASE 11 U/L (10-37); BILIRUBIN,TOTAL 0.5 MG/DL (0.1-1.0); BLOOD UREA NITROGEN 18 MG/DL (7-18); BUN/CREATININE RATIO 21.2 (6.6-38.0); CALCIUM 7.8 MG/DL (8.5-10.1); CHLORIDE 100 MMOL/L (99-107); CREATINE KINASE 41 U/L (26-192); CREATININE 0.85 MG/DL (0.40-0.90); GLUCOSE 144 MG/DL (70-104); LIPASE < 50 U/L (73-393); MAGNESIUM 1.7 MG/DL (1.5-2.4); PHOSPHORUS 3.5 MG/DL (2.3-4.5); POTASSIUM 4.6 MMOL/L (3.5-5.1); SODIUM 132 MMOL/L (135-145); TOTAL CARBON DIOXIDE 24.3 MMOL/L (24-32); TOTAL PROTEIN 6.1 G/DL (6.4-8.2); eGFR 75 ML/MIN
[2021-07-15 20:46] LABS: WHITE BLOOD COUNT 41.3 X10'3 (4.5-11.0)
[2021-07-15 20:53] LABS: ABG BASE EXCESS 0.5 mmol/L (-2.0-2.0); ABG HCO3 23.5 mmol/L (22.0-26.0); ABG OXYGEN SATURATION 94.4 % (94-97); ABG PO2 (T) 74.3 mmHg (75.0-100.0); ALLEN'S TEST Yes; FCOHb 0.3 % (0.0-3.9); FLOW 4 L/min; FMetHb 0.1 % (0.0-1.5); TOTAL HEMOGLOBIN 11.1 G/dl (12.0-16.0)
[2021-07-15 20:54] LABS: C-REACTIVE PROTEIN 29.22 MG/DL (0.0-0.5)
[2021-07-15] MEDS ORDERED: albumin (Human) 5% 250ml 250 ML IV ONE (21:50)
[2021-07-15] MEDS ORDERED: DOPamine 400mg/D5W 250ml 250 ML IV SCH (23:15)
[2021-07-16] VITALS (15 sets, daily range): BP systolic 97–122; BP diastolic 56–76
--- NOTE | 2021-07-16 00:15 | NUR ---
Dr. Ndiaye called in to perform left lung thoracotomy with chest tube placement. Patient initially drained 450 mL of serosanguineous fluid into chest tube collection device. Patient VS stable and is resting comfortably.
[2021-07-16] MEDS: ceFAZolin/D5W- 1GM premix 50 ML IV SCH (00:40)
[2021-07-16] MEDS: LORazepam 2 mg/ml vial IV PRN ×2 (00:40→21:09)
[2021-07-16] MEDS ORDERED: DOBUTamine-DoBUTrex 500mg/D5W 250 ML IV SCH ×2 (01:13→06:21)
[2021-07-16 04:20] LABS: BASOPHILS # (AUTO) 0.2 X10'3 (0-0.2); BASOPHILS % (AUTO) 0.5 % (0-1); EOSINOPHILS % (AUTO) 0 % (0-6); HEMATOCRIT 29.9 % (35.0-45.0); HEMOGLOBIN 9.5 g/dl (12.0-16.0); LYMPHOCYTES # (AUTO) 1.3 X10'3 (1.1-4.8); LYMPHOCYTES % (AUTO) 3.6 % (21-51); MEAN CORPUSCULAR HEMOGLOBIN 28.3 PG (27.0-31.0); MEAN CORPUSCULAR HGB CONC 31.8 g/dL (33.0-36.5); MEAN PLATELET VOLUME 8.7 FL (7.4-10.4); MONOCYTES # (AUTO) 1.5 X10'3 (0-0.9); MONOCYTES % (AUTO) 4.4 % (2-12); NEUTROPHILS # (AUTO) 31.8 X10'3 (1.8-7.7); NEUTROPHILS % (AUTO) 91.5 % (42-75); PLATELET COUNT 389 X10'3 (140-440); RED BLOOD COUNT 3.36 X10'6 (4.20-5.60)
[2021-07-16 04:29] LABS: WHITE BLOOD COUNT 34.8 X10'3 (4.5-11.0)
[2021-07-16 04:33] LABS: ALANINE AMINOTRANSFERASE 11 U/L (12-78); ALBUMIN 1.7 G/DL (3.4-5.0); ALBUMIN/GLOBULIN RATIO 0.4 (1.1-1.5); ALKALINE PHOSPHATASE 192 IU/L (46-116); ANION GAP 8 (8-16); ASPARTATE AMINO TRANSFERASE 9 U/L (10-37); BILIRUBIN,TOTAL 0.5 MG/DL (0.1-1.0); BLOOD UREA NITROGEN 18 MG/DL (7-18); BUN/CREATININE RATIO 28.1 (6.6-38.0); CALCIUM 7.8 MG/DL (8.5-10.1); CHLORIDE 101 MMOL/L (99-107); CREATININE 0.64 MG/DL (0.40-0.90); GLUCOSE 133 MG/DL (70-104); POTASSIUM 4.8 MMOL/L (3.5-5.1); SODIUM 134 MMOL/L (135-145); TOTAL CARBON DIOXIDE 24.6 MMOL/L (24-32); TOTAL PROTEIN 5.7 G/DL (6.4-8.2); eGFR > 90 ML/MIN
[2021-07-16 04:59] LABS: URINE HCG NEGATIVE (NEG)
[2021-07-16 05:03] LABS: CLARITY,URINE SLIGHTLY CLOUDY (Clear); COLOR,URINE AMBER (Yellow); GLUCOSE, URINE NEGATIVE (Neg); KETONES,URINE TRACE mg/dl (Neg); LEUKOCYTE ESTERASE ,URINE NEGATIVE (Neg); NITRITES, URINE NEGATIVE (Neg); OCCULT BLOOD,URINE MODERATE (Neg); PROTEIN,URINE 30 mg/dl (Neg)
[2021-07-16 05:07] LABS: URINE AMPHETAMINE SCREEN NEGATIVE (Neg); URINE BARBITUATE SCREEN NEGATIVE (Neg); URINE BENZODIAZEPINES SCREEN NEGATIVE (Neg); URINE CANNABINOID SCREEN POSITIVE (Neg); URINE COCAINE SCREEN NEGATIVE (Neg); URINE METHADONE SCREEN NEGATIVE (Neg); URINE OPIATE SCREEN POSITIVE (Neg); URINE PHENCYCLIDINE SCREEN NEGATIVE (Neg)
[2021-07-16 05:08] LABS: UA COLLECTION TYPE CLN CATCH MIDSTREAM
[2021-07-16 05:30] LABS: BACTERIA,URINE 1+ /HPF (Neg)
[2021-07-16 05:31] LABS: AMORPHOUS URATES 1+; MUCUS STRANDS MANY /LPF (Neg); SQUAMOUS EPITHELIAL CELL,UR FEW /LPF (FEW); WBC CLUMPS,URINE FEW /HPF (NEGATIVE)
--- NOTE | 2021-07-16 06:20 | NUR ---
Patient in room PCU 3018. I have received report from SHREYA Salas and had the opportunity to ask questions and assume patient care.
[2021-07-16 07:02] LABS: ANISOCYTOSIS FEW; BURR CELLS FEW; PLATELET ESTIMATE NORMAL; TOTAL CELLS COUNTED 100; TOXIC GRANULATION 1+
[2021-07-16] MEDS: HYDROmorphone inj. 0.5 MG/0.5 ML DISP.SYRIN IV PRN ×4 (07:45→20:38)
[2021-07-16] MEDS: lisinopril 2.5mg tablet PO SCH (07:48)
[2021-07-16] MEDS: enoxaparin 40mg/0.4ml syringe SUBCUT SCH ×2 (07:49→21:01)
[2021-07-16] MEDS: furosemide 20 MG/2 ML vial IV SCH (07:49)
[2021-07-16] MEDS: carVEDilol 3.125mg tablet PO SCH ×2 (07:49→17:54)
[2021-07-16] MEDS: dexamethasone 4mg/ml inj IV SCH ×2 (07:49→20:40)
[2021-07-16] MEDS: docusate sod 100mg capsule PO SCH ×2 (07:49→20:42)
[2021-07-16] MEDS: piperacillin/tazo 3.375gm/50ml 50 ML IV SCH ×3 (07:49→23:41)
[2021-07-16] MEDS: famotidine 20mg tablet PO SCH ×2 (07:50→20:42)
--- NOTE | 2021-07-16 18:32 | NUR ---
Problems reprioritized. Patient report given, questions answered & plan of care reviewed with SHREYA Del Angel.
[2021-07-16] MEDS: lactobacillus rhamnosus 10,000 MMU CELLS/CAPSULE PO SCH (20:42)
[2021-07-16] MEDS: HYDROcodone/acetaminophen 10/325mg tab PO PRN (23:41)
[2021-07-17] VITALS (8 sets, daily range): BP systolic 94–129; BP diastolic 61–87
[2021-07-17] MEDS: HYDROmorphone inj. 0.5 MG/0.5 ML DISP.SYRIN IV PRN ×5 (02:25→23:02)
--- NOTE | 2021-07-17 06:50 | NUR ---
Problems reprioritized. Patient report given, questions answered & plan of care reviewed with SHREYA Bains.
[2021-07-17] MEDS: carVEDilol 3.125mg tablet PO SCH ×2 (07:19→17:30)
[2021-07-17] MEDS: docusate sod 100mg capsule PO SCH ×2 (07:19→19:38)
[2021-07-17] MEDS: furosemide 20 MG/2 ML vial IV SCH (07:19)
[2021-07-17] MEDS: piperacillin/tazo 3.375gm/50ml 50 ML IV SCH (07:19)
[2021-07-17] MEDS: dexamethasone 4mg/ml inj IV SCH ×2 (07:20→19:37)
[2021-07-17] MEDS: lactobacillus rhamnosus 10,000 MMU CELLS/CAPSULE PO SCH ×2 (07:20→19:38)
[2021-07-17] MEDS: famotidine 20mg tablet PO SCH ×2 (07:20→19:38)
[2021-07-17] MEDS: lisinopril 2.5mg tablet PO SCH (07:20)
[2021-07-17] MEDS: enoxaparin 40mg/0.4ml syringe SUBCUT SCH ×2 (07:21→19:39)
--- NOTE | 2021-07-17 08:02 | NUR ---
Paged Dr. De Leon PAGER ID: [phone] MESSAGE: TEVIN Barragan [id number]; Patient on 1 of dobutamine and HR steady in 60s-70s, Ok to DC? Monisha CASH [phone]
--- NOTE | 2021-07-17 09:03 | NUR ---
Paged Dr. De Leon PAGER ID: [phone] MESSAGE: TEVIN Barragan 3019B; just FYI, pleural fluid positive for MRSA. Monisha CASH [phone]
[2021-07-17] MEDS: HYDROcodone/acetaminophen 10/325mg tab PO PRN (10:31)
[2021-07-17] MEDS: vancomycin/NS 1 GM ADD-VANTAGE 250 ML IV SCH ×2 (12:55→22:39)
[2021-07-17 13:54] LABS: BASOPHILS % (AUTO) 0.1 % (0-1); EOSINOPHILS % (AUTO) 0 % (0-6); HEMATOCRIT 29.4 % (35.0-45.0); HEMOGLOBIN 9.5 g/dl (12.0-16.0); LYMPHOCYTES # (AUTO) 0.9 X10'3 (1.1-4.8); LYMPHOCYTES % (AUTO) 5.1 % (21-51); MEAN CORPUSCULAR HEMOGLOBIN 28.6 PG (27.0-31.0); MEAN CORPUSCULAR HGB CONC 32.3 g/dL (33.0-36.5); MEAN CORPUSCULAR VOLUME 88.4 FL (78-98); MEAN PLATELET VOLUME 8.7 FL (7.4-10.4); MONOCYTES # (AUTO) 0.7 X10'3 (0-0.9); MONOCYTES % (AUTO) 4.3 % (2-12); NEUTROPHILS # (AUTO) 15.8 X10'3 (1.8-7.7); NEUTROPHILS % (AUTO) 90.5 % (42-75); PLATELET COUNT 419 X10'3 (140-440); RED BLOOD COUNT 3.33 X10'6 (4.20-5.60); WHITE BLOOD COUNT 17.4 X10'3 (4.5-11.0)
[2021-07-17 14:08] LABS: ALANINE AMINOTRANSFERASE 12 U/L (12-78); ALBUMIN 1.8 G/DL (3.4-5.0); ALBUMIN/GLOBULIN RATIO 0.4 (1.1-1.5); ALKALINE PHOSPHATASE 111 IU/L (46-116); ANION GAP 8 (8-16); ASPARTATE AMINO TRANSFERASE 13 U/L (10-37); BILIRUBIN,TOTAL 0.4 MG/DL (0.1-1.0); BLOOD UREA NITROGEN 18 MG/DL (7-18); CALCIUM 8.1 MG/DL (8.5-10.1); CHLORIDE 103 MMOL/L (99-107); CREATININE 0.58 MG/DL (0.40-0.90); GLUCOSE 137 MG/DL (70-104); POTASSIUM 3.7 MMOL/L (3.5-5.1); SODIUM 138 MMOL/L (135-145); TOTAL CARBON DIOXIDE 26.8 MMOL/L (24-32); TOTAL PROTEIN 6.7 G/DL (6.4-8.2); eGFR > 90 ML/MIN
--- NOTE | 2021-07-17 18:31 | NUR ---
Patient in room PCU 3018. I have received report from SHREYA Bains and had the opportunity to ask questions and assume patient care.
[2021-07-17] MEDS: oxyCODONE/APAP 5-325mg tablet PO PRN (19:38)
--- NOTE | 2021-07-17 21:30 | NUR ---
Chest Tube Chest tube was found leaking serosanguineous fluid. The tube was reinforced with xeroform, new gauze, and foam tape. Dr Palacios was notified.
[2021-07-18 02:00] VITALS: BP 114/68
[2021-07-18] MEDS: oxyCODONE/APAP 5-325mg tablet PO PRN ×2 (02:14→23:49)
[2021-07-18 06:00] VITALS: BP 134/87
--- NOTE | 2021-07-18 06:05 | NUR ---
Patient in room PCU 3018. I have received report from syed clinton and had the opportunity to ask questions and assume patient care.
--- NOTE | 2021-07-18 06:21 | NUR ---
Problems reprioritized. Patient bedside report given, questions answered & plan of care reviewed with SHREYA Ornelas.
--- NOTE | 2021-07-18 06:30 | NUR ---
Patient in room PCU 3018. I have received report from Mer CASH and had the opportunity to ask questions and assume patient care.
[2021-07-18] MEDS: docusate sod 100mg capsule PO SCH ×2 (07:58→20:51)
[2021-07-18] MEDS: dexamethasone 4mg/ml inj IV SCH (07:58)
[2021-07-18] MEDS: lactobacillus rhamnosus 10,000 MMU CELLS/CAPSULE PO SCH ×2 (07:58→20:51)
[2021-07-18] MEDS: lisinopril 2.5mg tablet PO SCH (07:58)
[2021-07-18] MEDS: famotidine 20mg tablet PO SCH ×2 (07:58→20:51)
[2021-07-18] MEDS: furosemide 20 MG/2 ML vial IV SCH (07:58)
[2021-07-18] MEDS: carVEDilol 3.125mg tablet PO SCH ×2 (07:58→17:31)
[2021-07-18] MEDS: HYDROmorphone inj. 0.5 MG/0.5 ML DISP.SYRIN IV PRN ×4 (07:59→20:52)
[2021-07-18] MEDS: enoxaparin 40mg/0.4ml syringe SUBCUT SCH ×2 (07:59→20:52)
[2021-07-18] MEDS: vancomycin/NS 1 GM ADD-VANTAGE 250 ML IV SCH ×2 (10:22→23:25)
[2021-07-18 12:31] LABS: BASOPHILS % (AUTO) 0 % (0-1); EOSINOPHILS % (AUTO) 0 % (0-6); HEMATOCRIT 30.3 % (35.0-45.0); LYMPHOCYTES # (AUTO) 1.1 X10'3 (1.1-4.8); LYMPHOCYTES % (AUTO) 7.6 % (21-51); MEAN CORPUSCULAR HEMOGLOBIN 28.9 PG (27.0-31.0); MEAN CORPUSCULAR HGB CONC 32.9 g/dL (33.0-36.5); MEAN CORPUSCULAR VOLUME 87.9 FL (78-98); MEAN PLATELET VOLUME 8.7 FL (7.4-10.4); MONOCYTES # (AUTO) 0.9 X10'3 (0-0.9); MONOCYTES % (AUTO) 6.1 % (2-12); NEUTROPHILS # (AUTO) 12.9 X10'3 (1.8-7.7); NEUTROPHILS % (AUTO) 86.3 % (42-75); PLATELET COUNT 498 X10'3 (140-440); RED BLOOD COUNT 3.45 X10'6 (4.20-5.60)
[2021-07-18 12:43] LABS: ALANINE AMINOTRANSFERASE 29 U/L (12-78); ALBUMIN 1.8 G/DL (3.4-5.0); ALBUMIN/GLOBULIN RATIO 0.4 (1.1-1.5); ALKALINE PHOSPHATASE 127 IU/L (46-116); ANION GAP 9 (8-16); ASPARTATE AMINO TRANSFERASE 31 U/L (10-37); BILIRUBIN,TOTAL 0.4 MG/DL (0.1-1.0); BLOOD UREA NITROGEN 18 MG/DL (7-18); CALCIUM 7.6 MG/DL (8.5-10.1); CHLORIDE 101 MMOL/L (99-107); CREATININE 0.58 MG/DL (0.40-0.90); GLUCOSE 123 MG/DL (70-104); POTASSIUM 3.7 MMOL/L (3.5-5.1); SODIUM 137 MMOL/L (135-145); TOTAL CARBON DIOXIDE 26.9 MMOL/L (24-32); TOTAL PROTEIN 6.7 G/DL (6.4-8.2); eGFR > 90 ML/MIN
[2021-07-18 15:00] VITALS: BP 113/68
[2021-07-18 18:00] VITALS: BP 101/84
--- NOTE | 2021-07-18 18:26 | NUR ---
Problems reprioritized. Patient report given, questions answered & plan of care reviewed with Mer CASH. Patient stable at transfer of care.
[2021-07-18] MEDS ORDERED: VANCOMYCIN LEVEL IV ONE (21:30)
[2021-07-18 22:00] VITALS: BP 120/71
[2021-07-19] VITALS (7 sets, daily range): BP systolic 98–121; BP diastolic 64–79
[2021-07-19] MEDS: HYDROmorphone inj. 0.5 MG/0.5 ML DISP.SYRIN IV PRN ×4 (04:56→19:58)
[2021-07-19 06:06] LABS: BASOPHILS % (AUTO) 0.4 % (0-1); EOSINOPHILS % (AUTO) 0.4 % (0-6); HEMATOCRIT 29.2 % (35.0-45.0); HEMOGLOBIN 9.5 g/dl (12.0-16.0); LYMPHOCYTES % (AUTO) 23.9 % (21-51); MEAN CORPUSCULAR HEMOGLOBIN 29.1 PG (27.0-31.0); MEAN CORPUSCULAR HGB CONC 32.6 g/dL (33.0-36.5); MEAN CORPUSCULAR VOLUME 89.3 FL (78-98); MEAN PLATELET VOLUME 8.6 FL (7.4-10.4); MONOCYTES # (AUTO) 1.3 X10'3 (0-0.9); MONOCYTES % (AUTO) 10.9 % (2-12); NEUTROPHILS % (AUTO) 64.4 % (42-75); PLATELET COUNT 482 X10'3 (140-440); RED BLOOD COUNT 3.27 X10'6 (4.20-5.60); RED CELL DISTRIBUTION WIDTH 15.4 % (11.5-14.5); WHITE BLOOD COUNT 12.4 X10'3 (4.5-11.0)
[2021-07-19 06:15] LABS: D-DIMER 6.12 MG/L FEU (0-0.50)
[2021-07-19 06:17] LABS: ALANINE AMINOTRANSFERASE 20 U/L (12-78); ALBUMIN 1.7 G/DL (3.4-5.0); ALBUMIN/GLOBULIN RATIO 0.4 (1.1-1.5); ALKALINE PHOSPHATASE 107 IU/L (46-116); ANION GAP 8 (8-16); ASPARTATE AMINO TRANSFERASE 13 U/L (10-37); BILIRUBIN,TOTAL 0.3 MG/DL (0.1-1.0); BLOOD UREA NITROGEN 21 MG/DL (7-18); BUN/CREATININE RATIO 34.4 (6.6-38.0); C-REACTIVE PROTEIN 2.74 MG/DL (0.0-0.5); CALCIUM 7.7 MG/DL (8.5-10.1); CHLORIDE 106 MMOL/L (99-107); CREATININE 0.61 MG/DL (0.40-0.90); GLUCOSE 91 MG/DL (70-104); POTASSIUM 3.4 MMOL/L (3.5-5.1); SODIUM 140 MMOL/L (135-145); TOTAL CARBON DIOXIDE 26.5 MMOL/L (24-32); TOTAL PROTEIN 6.2 G/DL (6.4-8.2); eGFR > 90 ML/MIN
--- NOTE | 2021-07-19 07:08 | NUR ---
[place] Medication Administration: For this medication-pass time frame, all medication were reviewed, dispensed, administered and documented per hospital policy by SHREYA Nicholas. [place] documentation: I have reviewed and agree with all interventions, assessments performed and documented by SHREYA Nicholas.
[2021-07-19] MEDS: furosemide 20 MG/2 ML vial IV SCH (09:50)
[2021-07-19] MEDS: famotidine 20mg tablet PO SCH ×2 (09:51→20:02)
[2021-07-19] MEDS: carVEDilol 3.125mg tablet PO SCH ×2 (09:52→17:31)
[2021-07-19] MEDS: lisinopril 2.5mg tablet PO SCH (09:52)
[2021-07-19] MEDS: docusate sod 100mg capsule PO SCH ×2 (09:52→20:02)
[2021-07-19] MEDS: enoxaparin 40mg/0.4ml syringe SUBCUT SCH ×2 (09:52→20:03)
[2021-07-19] MEDS: dexamethasone 4mg/ml inj IV SCH (10:10)
[2021-07-19] MEDS: lactobacillus rhamnosus 10,000 MMU CELLS/CAPSULE PO SCH ×2 (10:11→20:02)
[2021-07-19] MEDS: vancomycin/NS 1 GM ADD-VANTAGE 250 ML IV SCH ×2 (10:43→16:04)
--- NOTE | 2021-07-19 13:28 | NUR ---
Initial: Pt admitted w/ SOB and flank pain after recently being discharged from having Covid per EMR. Pt eating moderately well, mostly 50% of meals on Regular diet. Noted that pt's family sometimes brings her food too. Intake adequate, current diet tolerated. No N/V/D noted, LBM 07/18. No nutritional intervention implemented at this time, will continue to monitor. Recs: 1. Continue Regular diet as tolerated 2. Bowel care per rx 3. Weekly wts Addendum: 07/19/21 at [address] Amended: Links added.
[2021-07-19] MEDS ORDERED: potassium Cl 20 mEq SR tablet PO PRN (13:40)
[2021-07-19] MEDS ORDERED: potassium Cl 40MEQ/1/2NS 520ml 520 ML IV PRN ×2 (13:40)
--- NOTE | 2021-07-19 14:12 | NUR ---
Paged Dr. De Leon regarding heart rate PAGER ID: [phone] MESSAGE: [id number] Neida Barragan. Heart rate 130-150s. U Crystal
[2021-07-19] MEDS: potassium chloride 8mEq ER tablet PO SCH (14:17)
--- NOTE | 2021-07-19 15:57 | NUR ---
Paged Dr. De Leon regarding heart rate. PAGER ID: [phone] MESSAGE: [id number] Neida Barragan. Patient heart rate after dilaudid was 110. Now heart rate is 130. U Crystal
[2021-07-19] MEDS: metoprolol tartrate 25mg tablet PO SCH ×2 (16:18→20:00)
--- NOTE | 2021-07-19 18:30 | NUR ---
Patient in room PCU 3018. I have received report from Kalani CASH and had the opportunity to ask questions and assume patient care.
--- NOTE | 2021-07-19 18:33 | NUR ---
Problems reprioritized. Patient report given, questions answered & plan of care reviewed with Tatum CASH. Patient stable at transfer of care.
[2021-07-19] MEDS: K and/or MAG REPLACEMENT MC SCH (20:00)
[2021-07-19] MEDS: zolpidem 5mg tablet PO PRN (23:00)
[2021-07-20] MEDS: vancomycin/NS 1 GM ADD-VANTAGE 250 ML IV SCH ×2 (00:32→08:24)
[2021-07-20] MEDS: HYDROmorphone inj. 0.5 MG/0.5 ML DISP.SYRIN IV PRN ×5 (00:33→19:48)
[2021-07-20 02:00] VITALS: BP 111/79
--- NOTE | 2021-07-20 06:21 | NUR ---
Problems reprioritized. Patient report given, questions answered & plan of care reviewed with Mando CASH.
[2021-07-20 07:05] VITALS: BP 117/79
[2021-07-20] MEDS ORDERED: VANCOMYCIN LEVEL IV ONE (07:30)
[2021-07-20] MEDS: K and/or MAG REPLACEMENT MC SCH ×2 (08:00→20:00)
[2021-07-20] MEDS: dexamethasone 4mg/ml inj IV SCH (08:23)
[2021-07-20] MEDS: furosemide 20 MG/2 ML vial IV SCH (08:24)
[2021-07-20] MEDS: famotidine 20mg tablet PO SCH ×2 (08:24→19:54)
[2021-07-20] MEDS: potassium chloride 8mEq ER tablet PO SCH (08:25)
[2021-07-20] MEDS: lactobacillus rhamnosus 10,000 MMU CELLS/CAPSULE PO SCH ×2 (08:25→19:54)
[2021-07-20] MEDS: lisinopril 2.5mg tablet PO SCH (08:25)
[2021-07-20] MEDS: carVEDilol 3.125mg tablet PO SCH ×2 (08:25→16:45)
[2021-07-20] MEDS: docusate sod 100mg capsule PO SCH ×2 (08:25→19:54)
[2021-07-20] MEDS: metoprolol tartrate 25mg tablet PO SCH ×2 (08:25→19:57)
[2021-07-20] MEDS: enoxaparin 40mg/0.4ml syringe SUBCUT SCH (08:26)
[2021-07-20 08:46] LABS: C-REACTIVE PROTEIN 3.24 MG/DL (0.0-0.5); VANCOMYCIN,TROUGH 13.8 UG/ML (6.0-14.0)
[2021-07-20 12:00] VITALS: BP 107/54
[2021-07-20] MEDS: VANCOmycin 1250MG/NS 250ml Bag 250 ML IV SCH (14:57)
[2021-07-20 15:00] VITALS: BP 114/79
[2021-07-20] MEDS: potassium Cl 20 mEq SR tablet PO PRN ×2 (16:45→22:08)
[2021-07-20 18:25] VITALS: BP 114/74
--- NOTE | 2021-07-20 18:41 | NUR ---
Patient in room PCU 3018. I have received report from Mando CASH and had the opportunity to ask questions and assume patient care.
[2021-07-20] MEDS: enoxaparin 60mg/0.6ml syringe SUBCUT SCH (19:54)
[2021-07-20] MEDS: HYDROcodone/acetaminophen 5mg/325mg tablet PO PRN (22:04)
[2021-07-20] MEDS: zolpidem 5mg tablet PO PRN (22:05)
[2021-07-20 22:12] VITALS: BP 108/67
[2021-07-21] MEDS: VANCOmycin 1250MG/NS 250ml Bag 250 ML IV SCH ×4 (00:02→23:07)
[2021-07-21 02:35] VITALS: BP 101/62
[2021-07-21] MEDS: HYDROcodone/acetaminophen 10/325mg tab PO PRN ×3 (03:12→23:07)
[2021-07-21] MEDS: HYDROmorphone inj. 0.5 MG/0.5 ML DISP.SYRIN IV PRN ×4 (04:22→20:03)
--- NOTE | 2021-07-21 06:47 | NUR ---
Problems reprioritized. Patient report given, questions answered & plan of care reviewed with Nadia CASH.
--- NOTE | 2021-07-21 07:14 | NUR ---
Patient in room PCU 3018. I have received report from SHREYA CHÁVEZ, and had the opportunity to ask questions and assume patient care.
[2021-07-21 07:45] VITALS: BP 120/73
[2021-07-21] MEDS: furosemide 20 MG/2 ML vial IV SCH (07:49)
[2021-07-21] MEDS: potassium chloride 8mEq ER tablet PO SCH (07:49)
[2021-07-21] MEDS: carVEDilol 3.125mg tablet PO SCH ×2 (07:49→17:37)
[2021-07-21] MEDS: enoxaparin 60mg/0.6ml syringe SUBCUT SCH ×2 (07:49→19:46)
[2021-07-21] MEDS: docusate sod 100mg capsule PO SCH ×2 (07:50→19:46)
[2021-07-21] MEDS: lisinopril 2.5mg tablet PO SCH (07:50)
[2021-07-21] MEDS: famotidine 20mg tablet PO SCH ×2 (07:51→19:47)
[2021-07-21] MEDS: metoprolol tartrate 25mg tablet PO SCH ×2 (07:51→19:46)
[2021-07-21] MEDS: lactobacillus rhamnosus 10,000 MMU CELLS/CAPSULE PO SCH ×2 (07:51→19:46)
[2021-07-21] MEDS: K and/or MAG REPLACEMENT MC SCH ×2 (08:00→19:47)
[2021-07-21] MEDS: dexamethasone 4mg/ml inj IV SCH (09:07)
[2021-07-21 11:00] VITALS: BP 121/75
[2021-07-21 15:00] VITALS: BP 110/69
[2021-07-21] MEDS ORDERED: VANCOMYCIN LEVEL IV ONE (15:30)
[2021-07-21 15:50] LABS: VANCOMYCIN,TROUGH 19.8 UG/ML (6.0-14.0)
--- NOTE | 2021-07-21 16:34 | NUR ---
VANCO TROUGH =- 19.8. PHARMACY NOTIFIED. PHARMACY AWAITING MORE TEST RESULTS AND ASKS THIS NURSE TO WAIT TO ADMINISTER UNTIL FURTHER NOTICE.
[2021-07-21 16:40] LABS: CREATININE 0.62 MG/DL (0.40-0.90); eGFR > 90 ML/MIN
[2021-07-21 18:00] VITALS: BP 130/75
--- NOTE | 2021-07-21 18:00 | NUR ---
Patient in room PCU 3018. I have received report from MILTON CASH and had the opportunity to ask questions and assume patient care.
--- NOTE | 2021-07-21 18:53 | NUR ---
Problems reprioritized. Patient report given, questions answered & plan of care reviewed with SHREYA LANE.
[2021-07-21] MEDS: potassium Cl 20 mEq SR tablet PO PRN (19:45)
[2021-07-21 22:00] VITALS: BP 97/52
[2021-07-22 02:07] VITALS: BP 98/59
[2021-07-22] MEDS: HYDROmorphone inj. 0.5 MG/0.5 ML DISP.SYRIN IV PRN ×5 (02:10→23:50)
[2021-07-22] MEDS: potassium Cl 20 mEq SR tablet PO PRN (05:40)
[2021-07-22] MEDS: HYDROcodone/acetaminophen 10/325mg tab PO PRN ×2 (05:40→20:09)
[2021-07-22 06:00] VITALS: BP 116/66
--- NOTE | 2021-07-22 06:44 | NUR ---
Patient in room PCU 3018. I have received report from SHREYA LANE, and had the opportunity to ask questions and assume patient care.
[2021-07-22 07:08] LABS: C-REACTIVE PROTEIN 1.49 MG/DL (0.0-0.5)
[2021-07-22 07:11] LABS: D-DIMER 6.18 MG/L FEU (0-0.50)
[2021-07-22] MEDS: carVEDilol 3.125mg tablet PO SCH ×2 (07:30→17:42)
[2021-07-22] MEDS: docusate sod 100mg capsule PO SCH ×2 (08:00→20:11)
[2021-07-22] MEDS: enoxaparin 60mg/0.6ml syringe SUBCUT SCH ×2 (08:00→20:12)
[2021-07-22] MEDS: furosemide 20 MG/2 ML vial IV SCH (08:00)
[2021-07-22] MEDS: potassium chloride 8mEq ER tablet PO SCH (08:00)
[2021-07-22] MEDS: lactobacillus rhamnosus 10,000 MMU CELLS/CAPSULE PO SCH ×2 (08:00→20:11)
[2021-07-22] MEDS: dexamethasone 4mg/ml inj IV SCH (08:00)
[2021-07-22] MEDS: lisinopril 2.5mg tablet PO SCH (08:00)
[2021-07-22] MEDS: metoprolol tartrate 25mg tablet PO SCH ×2 (08:00→20:00)
[2021-07-22] MEDS: K and/or MAG REPLACEMENT MC SCH ×2 (08:00→20:00)
[2021-07-22] MEDS: VANCOmycin 1250MG/NS 250ml Bag 250 ML IV SCH ×3 (08:00→23:49)
[2021-07-22] MEDS: famotidine 20mg tablet PO SCH ×2 (08:00→20:09)
[2021-07-22 08:22] LABS: BASOPHILS # (AUTO) 0.1 X10'3 (0-0.2); BASOPHILS % (AUTO) 0.7 % (0-1); EOSINOPHILS # (AUTO) 0.2 X10'3 (0-0.9); EOSINOPHILS % (AUTO) 1.6 % (0-6); HEMATOCRIT 28.8 % (35.0-45.0); HEMOGLOBIN 9.5 g/dl (12.0-16.0); LYMPHOCYTES # (AUTO) 3.5 X10'3 (1.1-4.8); LYMPHOCYTES % (AUTO) 32.7 % (21-51); MEAN CORPUSCULAR VOLUME 87.9 FL (78-98); MEAN PLATELET VOLUME 8.3 FL (7.4-10.4); MONOCYTES % (AUTO) 9.1 % (2-12); NEUTROPHILS % (AUTO) 55.9 % (42-75); PLATELET COUNT 522 X10'3 (140-440); RED BLOOD COUNT 3.28 X10'6 (4.20-5.60); RED CELL DISTRIBUTION WIDTH 15.1 % (11.5-14.5); WHITE BLOOD COUNT 10.7 X10'3 (4.5-11.0)
[2021-07-22 08:44] LABS: ALANINE AMINOTRANSFERASE 37 U/L (12-78); ALBUMIN 1.9 G/DL (3.4-5.0); ALBUMIN/GLOBULIN RATIO 0.4 (1.1-1.5); ALKALINE PHOSPHATASE 81 IU/L (46-116); ANION GAP 11 (8-16); ASPARTATE AMINO TRANSFERASE 16 U/L (10-37); BILIRUBIN,TOTAL 0.2 MG/DL (0.1-1.0); BLOOD UREA NITROGEN 19 MG/DL (7-18); BUN/CREATININE RATIO 30.2 (6.6-38.0); CALCIUM 8.2 MG/DL (8.5-10.1); CHLORIDE 105 MMOL/L (99-107); CREATININE 0.63 MG/DL (0.40-0.90); GLUCOSE 87 MG/DL (70-104); SODIUM 141 MMOL/L (135-145); TOTAL CARBON DIOXIDE 25.2 MMOL/L (24-32); TOTAL PROTEIN 6.3 G/DL (6.4-8.2); eGFR > 90 ML/MIN
[2021-07-22 11:00] VITALS: BP 108/71
--- NOTE | 2021-07-22 11:57 | NUR ---
COMPUTER DID NOT SAVE MORNING MEDS, INCLUDING 0.5 DILAUDID FOR PAIN.
[2021-07-22] MEDS: HYDROcodone/acetaminophen 5mg/325mg tablet PO PRN (14:17)
[2021-07-22 15:00] VITALS: BP 110/66
--- NOTE | 2021-07-22 15:26 | NUR ---
PT'S MOTHER BROUGHT HER PANDA EXPRESS FOR LUNCH. PT'S DIET IS SUPPLEMENTED .
[2021-07-22 18:00] VITALS: BP 107/73
--- NOTE | 2021-07-22 18:30 | NUR ---
Patient in room U 3018. I have received report from MILTON CASH and had the opportunity to ask questions and assume patient care. Addendum: 07/22/21 at 1832 by Fanny Oconnell RN Amended: Links added.
--- NOTE | 2021-07-22 18:52 | NUR ---
Problems reprioritized. Patient report given, questions answered & plan of care reviewed with SHREYA ADAM.
[2021-07-22 22:00] VITALS: BP 101/60
--- NOTE | 2021-07-22 23:55 | NUR ---
medicated for pain per request.
[2021-07-23 02:00] VITALS: BP 97/53
--- NOTE | 2021-07-23 02:47 | NUR ---
RESTING APPEARS COMFORTABLE.
[2021-07-23] MEDS: HYDROmorphone inj. 0.5 MG/0.5 ML DISP.SYRIN IV PRN ×4 (04:13→20:44)
--- NOTE | 2021-07-23 04:19 | NUR ---
medicated for left chest pain and generalized pain with iv Dilaudid.
[2021-07-23 06:00] VITALS: BP 108/78
--- NOTE | 2021-07-23 06:20 | NUR ---
Patient in room PCU 3018. I have received report from Fanny CASH and had the opportunity to ask questions and assume patient care.
--- NOTE | 2021-07-23 06:22 | NUR ---
Problems reprioritized. Patient report given, questions answered & plan of care reviewed with JULIETTE CASH. Addendum: 07/23/21 at 0623 by Fanny Oconnell RN Amended: Links added.
[2021-07-23 06:32] LABS: BASOPHILS # (AUTO) 0.1 X10'3 (0-0.2); BASOPHILS % (AUTO) 0.9 % (0-1); EOSINOPHILS # (AUTO) 0.2 X10'3 (0-0.9); EOSINOPHILS % (AUTO) 1.5 % (0-6); HEMATOCRIT 29.2 % (35.0-45.0); HEMOGLOBIN 9.5 g/dl (12.0-16.0); LYMPHOCYTES # (AUTO) 3.9 X10'3 (1.1-4.8); LYMPHOCYTES % (AUTO) 36.3 % (21-51); MEAN CORPUSCULAR HEMOGLOBIN 28.8 PG (27.0-31.0); MEAN CORPUSCULAR HGB CONC 32.5 g/dL (33.0-36.5); MEAN CORPUSCULAR VOLUME 88.6 FL (78-98); MEAN PLATELET VOLUME 7.9 FL (7.4-10.4); MONOCYTES # (AUTO) 0.9 X10'3 (0-0.9); MONOCYTES % (AUTO) 8.5 % (2-12); NEUTROPHILS # (AUTO) 5.7 X10'3 (1.8-7.7); NEUTROPHILS % (AUTO) 52.8 % (42-75); PLATELET COUNT 504 X10'3 (140-440); RED CELL DISTRIBUTION WIDTH 15.2 % (11.5-14.5); WHITE BLOOD COUNT 10.9 X10'3 (4.5-11.0)
[2021-07-23 06:45] LABS: D-DIMER 5.37 MG/L FEU (0-0.50)
[2021-07-23 07:02] LABS: ALANINE AMINOTRANSFERASE 26 U/L (12-78); ALBUMIN/GLOBULIN RATIO 0.4 (1.1-1.5); ALKALINE PHOSPHATASE 82 IU/L (46-116); ANION GAP 9 (8-16); ASPARTATE AMINO TRANSFERASE 11 U/L (10-37); BILIRUBIN,TOTAL 0.2 MG/DL (0.1-1.0); BLOOD UREA NITROGEN 15 MG/DL (7-18); BUN/CREATININE RATIO 25.9 (6.6-38.0); C-REACTIVE PROTEIN 1.78 MG/DL (0.0-0.5); CALCIUM 8.3 MG/DL (8.5-10.1); CHLORIDE 106 MMOL/L (99-107); CREATININE 0.58 MG/DL (0.40-0.90); GLUCOSE 81 MG/DL (70-104); POTASSIUM 3.7 MMOL/L (3.5-5.1); SODIUM 141 MMOL/L (135-145); TOTAL PROTEIN 6.6 G/DL (6.4-8.2); eGFR > 90 ML/MIN
[2021-07-23] MEDS: potassium chloride 8mEq ER tablet PO SCH (08:30)
[2021-07-23] MEDS: lisinopril 2.5mg tablet PO SCH (08:30)
[2021-07-23] MEDS: lactobacillus rhamnosus 10,000 MMU CELLS/CAPSULE PO SCH ×2 (08:31→20:46)
[2021-07-23] MEDS: carVEDilol 3.125mg tablet PO SCH ×2 (08:31→16:30)
[2021-07-23] MEDS: VANCOmycin 1250MG/NS 250ml Bag 250 ML IV SCH ×3 (08:31→23:55)
[2021-07-23] MEDS: famotidine 20mg tablet PO SCH ×2 (08:31→20:47)
[2021-07-23] MEDS: HYDROcodone/acetaminophen 10/325mg tab PO PRN ×2 (08:31→15:00)
[2021-07-23] MEDS: dexamethasone 4mg/ml inj IV SCH (08:32)
[2021-07-23] MEDS: furosemide 20 MG/2 ML vial IV SCH (08:32)
[2021-07-23] MEDS: metoprolol tartrate 25mg tablet PO SCH ×2 (08:32→20:00)
[2021-07-23] MEDS: enoxaparin 60mg/0.6ml syringe SUBCUT SCH ×2 (08:33→20:43)
[2021-07-23] MEDS: docusate sod 100mg capsule PO SCH ×2 (08:34→20:47)
[2021-07-23] MEDS: K and/or MAG REPLACEMENT MC SCH ×2 (08:39→20:00)
[2021-07-23 11:00] VITALS: BP 109/66
[2021-07-23 15:23] VITALS: BP 104/65
[2021-07-23 18:00] VITALS: BP 102/60
--- NOTE | 2021-07-23 18:24 | NUR ---
Patient in room PCU 3018B. I have received report from SHREYA Escalera and had the opportunity to ask questions and assume patient care.
--- NOTE | 2021-07-23 18:25 | NUR ---
Problems reprioritized. Patient report given, questions answered & plan of care reviewed with Ginette lynch.
[2021-07-23 22:00] VITALS: BP 106/66
[2021-07-23] MEDS: zolpidem 5mg tablet PO PRN (23:55)
[2021-07-24] MEDS: HYDROcodone/acetaminophen 10/325mg tab PO PRN ×3 (00:38→13:32)
[2021-07-24 02:00] VITALS: BP 114/62
[2021-07-24] MEDS: HYDROmorphone inj. 0.5 MG/0.5 ML DISP.SYRIN IV PRN ×4 (03:10→16:10)
--- NOTE | 2021-07-24 06:17 | NUR ---
Problems reprioritized. Patient report given, questions answered & plan of care reviewed with SHREYA Em.
--- NOTE | 2021-07-24 06:33 | NUR ---
Patient in room PCU 3018. I have received report from Ginette CASH and had the opportunity to ask questions and assume patient care.
[2021-07-24 06:36] LABS: EOSINOPHILS # (AUTO) 0.2 X10'3 (0-0.9); HEMOGLOBIN 9.8 g/dl (12.0-16.0); RED CELL DISTRIBUTION WIDTH 15.2 % (11.5-14.5)
[2021-07-24 06:37] LABS: BASOPHILS # (AUTO) 0.2 X10'3 (0-0.2); BASOPHILS % (AUTO) 1.3 % (0-1); EOSINOPHILS % (AUTO) 1.3 % (0-6); HEMATOCRIT 30.1 % (35.0-45.0); LYMPHOCYTES # (AUTO) 4.8 X10'3 (1.1-4.8); LYMPHOCYTES % (AUTO) 33.6 % (21-51); MEAN CORPUSCULAR HEMOGLOBIN 28.7 PG (27.0-31.0); MEAN CORPUSCULAR HGB CONC 32.6 g/dL (33.0-36.5); MEAN CORPUSCULAR VOLUME 88.1 FL (78-98); MEAN PLATELET VOLUME 8.2 FL (7.4-10.4); MONOCYTES % (AUTO) 6.7 % (2-12); NEUTROPHILS # (AUTO) 8.2 X10'3 (1.8-7.7); NEUTROPHILS % (AUTO) 57.1 % (42-75); PLATELET COUNT 439 X10'3 (140-440); RED BLOOD COUNT 3.41 X10'6 (4.20-5.60); WHITE BLOOD COUNT 14.3 X10'3 (4.5-11.0)
[2021-07-24 06:56] LABS: D-DIMER 5.08 MG/L FEU (0-0.50)
[2021-07-24 07:00] VITALS: BP 127/67
[2021-07-24 07:15] LABS: ALANINE AMINOTRANSFERASE 31 U/L (12-78); ALBUMIN 2.3 G/DL (3.4-5.0); ALBUMIN/GLOBULIN RATIO 0.5 (1.1-1.5); ALKALINE PHOSPHATASE 86 IU/L (46-116); ANION GAP 11 (8-16); ASPARTATE AMINO TRANSFERASE 16 U/L (10-37); BILIRUBIN,TOTAL 0.2 MG/DL (0.1-1.0); BLOOD UREA NITROGEN 18 MG/DL (7-18); BUN/CREATININE RATIO 28.1 (6.6-38.0); C-REACTIVE PROTEIN 2.38 MG/DL (0.0-0.5); CALCIUM 8.6 MG/DL (8.5-10.1); CHLORIDE 103 MMOL/L (99-107); CREATININE 0.64 MG/DL (0.40-0.90); GLUCOSE 88 MG/DL (70-104); POTASSIUM 3.5 MMOL/L (3.5-5.1); SODIUM 141 MMOL/L (135-145); TOTAL CARBON DIOXIDE 27.3 MMOL/L (24-32); TOTAL PROTEIN 7.2 G/DL (6.4-8.2); eGFR > 90 ML/MIN
[2021-07-24] MEDS: dexamethasone 4mg/ml inj IV SCH (07:38)
[2021-07-24] MEDS: furosemide 20 MG/2 ML vial IV SCH (07:43)
[2021-07-24] MEDS: lactobacillus rhamnosus 10,000 MMU CELLS/CAPSULE PO SCH (07:44)
[2021-07-24] MEDS: potassium chloride 8mEq ER tablet PO SCH (07:45)
[2021-07-24] MEDS: famotidine 20mg tablet PO SCH (07:45)
[2021-07-24] MEDS: lisinopril 2.5mg tablet PO SCH (07:46)
[2021-07-24] MEDS: docusate sod 100mg capsule PO SCH (07:46)
[2021-07-24] MEDS: metoprolol tartrate 25mg tablet PO SCH (07:46)
[2021-07-24] MEDS: carVEDilol 3.125mg tablet PO SCH (07:46)
[2021-07-24] MEDS: enoxaparin 60mg/0.6ml syringe SUBCUT SCH (07:47)
[2021-07-24] MEDS: VANCOmycin 1250MG/NS 250ml Bag 250 ML IV SCH ×2 (07:48→16:01)
[2021-07-24] MEDS: K and/or MAG REPLACEMENT MC SCH (08:00)
[2021-07-24 11:00] VITALS: BP 111/62
[2021-07-24] MEDS ORDERED: DEC1T PO (11:01)
[2021-07-24] MEDS ORDERED: LOP25T PO (11:01)
[2021-07-24 15:00] VITALS: BP 99/66
--- NOTE | 2021-07-24 15:47 | NUR ---
Patient had meal brought in by family. Refused hospital meal.
--- NOTE | 2021-07-24 16:15 | NUR ---
PAGER ID: [phone] MESSAGE: Patient Neida Love in room 3018B has had her chest tube removed and the chest xray. The report is pending. Maria Antonia ext [phone]
--- NOTE | 2021-07-24 17:17 | NUR ---
Patient stable for discharge per Dr. Estevez. DC'd tele, DC'd PIV with canula intact. Patient verbalized understanding of discharge instructions, medication regimen, worsening symptoms and importance of follow up care. Escorted patient to the lobby to transport home with her mother.
== END 2021-07-24 17:00 | disposition home or self-care (01) | DRG 720 ==
LOC: ER 10:22 → ED HOLD 13:30 → PCU 3S 22:45
PROVIDERS: ADMIT Internal Medicine; ATTEND Internal Medicine
PROC: 0W9B3ZZ Drainage of Left Pleural Cavity, Percutaneous Approach (ICD-10-PCS; principal; 2021-07-14)
PROC: 0W9B00Z Drainage of Left Pleural Cavity with Drainage Device, Open Approach (ICD-10-PCS; 2021-07-15)
DX: A41.01 Sepsis due to Methicillin susceptible Staphylococcus aureus (principal); J12.82 Pneumonia due to coronavirus disease 2019; J86.9 Pyothorax without fistula; I50.23 Acute on chronic systolic (congestive) heart failure; I95.9 Hypotension, unspecified; J91.8 Pleural effusion in other conditions classified elsewhere; U07.1 COVID-19; D64.9 Anemia, unspecified; B95.1 Streptococcus, group B, as the cause of diseases classified elsewhere; I11.0 Hypertensive heart disease with heart failure; B95.62 Methicillin resistant Staphylococcus aureus infection as the cause of diseases classified elsewhere; F17.210 Nicotine dependence, cigarettes, uncomplicated; K50.90 Crohn's disease, unspecified, without complications; Z90.49 Acquired absence of other specified parts of digestive tract; Z88.5 Allergy status to narcotic agent
CPT/HCPCS: 32555; 36415; 36600; 71045; 71046; 76604; 76937; 80053; 80202; 80305; 81001; 81025; 82550; 82565; 82803; 82945; 83605; 83615; 83690; 83735; 83880; 84100; 84145; 85007; 85018; 85025; 85379; 85651; 86140; 87040; 87070; 87077; 87081; 87088; 87186; 89051; 93005; 99285; G0378; J0690; J1100; J1170; J1250; J1265; J1650; J1940; J2060; J2270; J2543; J3370; J7030; P9045

== ENCOUNTER → 2021-08-13 | Emergency (ER) | payer MEDICAID ==
[~2021-08-13] VITALS: Ht 162.6 cm; Wt 60.0 kg
[~2021-08-13] MED LIST changes: -COR3.125T PO; +DEC1T PO; -DEXA6TAB PO; +HYDR-3964 PO; -HYDR-3965 PO; -LINE600T11 PO; -LISI2.5T14 PO; +LISI2.5T89 PO; +LOP25T PO
[2021-08-13 22:30] LABS: URINE HCG NEGATIVE (NEG)
[2021-08-13 23:54] VITALS: BP 125/80
== END | disposition home or self-care (01) ==
LOC: ER 21:15
DX: J90 Pleural effusion, not elsewhere classified (principal); I50.22 Chronic systolic (congestive) heart failure
CPT/HCPCS: 71045; 81025; 99284

== ENCOUNTER 2021-10-12 11:54 | Emergency (ER) | payer MEDICAID ==
[~2021-10-12] VITALS: Ht 162.6 cm; Wt 59.1 kg
[~2021-10-12 11:54] MED LIST changes: -DEC1T PO
[2021-10-12 12:07] VITALS: BP 126/93
[2021-10-12 13:27] LABS: BASOPHILS % (AUTO) 0.6 % (0-1); EOSINOPHILS # (AUTO) 0.1 X10'3 (0-0.9); EOSINOPHILS % (AUTO) 0.9 % (0-6); HEMATOCRIT 37.5 % (35.0-45.0); HEMOGLOBIN 12.3 g/dl (12.0-16.0); MEAN CORPUSCULAR HEMOGLOBIN 27.8 PG (27.0-31.0); MEAN CORPUSCULAR HGB CONC 32.9 g/dL (33.0-36.5); MEAN CORPUSCULAR VOLUME 84.5 FL (78-98); MEAN PLATELET VOLUME 8.8 FL (7.4-10.4); MONOCYTES # (AUTO) 0.4 X10'3 (0-0.9); MONOCYTES % (AUTO) 6.9 % (2-12); NEUTROPHILS # (AUTO) 3.7 X10'3 (1.8-7.7); NEUTROPHILS % (AUTO) 59.6 % (42-75); PLATELET COUNT 268 X10'3 (140-440); RED BLOOD COUNT 4.43 X10'6 (4.20-5.60); RED CELL DISTRIBUTION WIDTH 15.9 % (11.5-14.5); WHITE BLOOD COUNT 6.2 X10'3 (4.5-11.0)
[2021-10-12 13:36] LABS: ALANINE AMINOTRANSFERASE 17 U/L (12-78); ALBUMIN 3.8 G/DL (3.4-5.0); ALKALINE PHOSPHATASE 56 IU/L (46-116); ANION GAP 10 (8-16); ASPARTATE AMINO TRANSFERASE 12 U/L (10-37); BILIRUBIN,TOTAL 0.5 MG/DL (0.1-1.0); BLOOD UREA NITROGEN 26 MG/DL (7-18); BUN/CREATININE RATIO 42.6 (6.6-38.0); CALCIUM 8.9 MG/DL (8.5-10.1); CHLORIDE 106 MMOL/L (99-107); CREATININE 0.61 MG/DL (0.40-0.90); GLUCOSE 91 MG/DL (70-104); POTASSIUM 3.9 MMOL/L (3.5-5.1); SODIUM 140 MMOL/L (135-145); TOTAL CARBON DIOXIDE 23.9 MMOL/L (24-32); TOTAL PROTEIN 7.5 G/DL (6.4-8.2); eGFR > 90 ML/MIN
== END 2021-10-12 14:30 | disposition home or self-care (01) ==
LOC: ER 11:57
DX: B34.9 Viral infection, unspecified (principal); Z20.822 Contact with and (suspected) exposure to COVID-19; I11.0 Hypertensive heart disease with heart failure; F15.10 Other stimulant abuse, uncomplicated; Z88.5 Allergy status to narcotic agent; Z79.899 Other long term (current) drug therapy
CPT/HCPCS: 36415; 71045; 80053; 83880; 85025; 87635; 99284; C9803

== ENCOUNTER 2023-06-12 03:04 | Emergency (ER) | payer MEDICAID ==
[~2023-06-12] VITALS: Ht 162.6 cm; Wt 71.4 kg
[2023-06-12 03:18] VITALS: BP 145/64; PULSE 81; RESP 14; TEMP 98.5; O2SAT 96
--- NOTE | 2023-06-12 03:18 | NUR ---
Attempt to get lab work unsuccessful by triage nurse.
== END 2023-06-12 06:10 | disposition left against medical advice (07) ==
LOC: ER 03:05
DX: R07.9 Chest pain, unspecified (principal); Z53.21 Procedure and treatment not carried out due to patient leaving prior to being seen by health care provider
CPT/HCPCS: 71045; 93005; 99281

== ENCOUNTER 2023-10-26 14:39 | Inpatient (IN) | payer MEDICAID ==
[~2023-10-26] VITALS: Ht 162.6 cm; Wt 72.2 kg
[2023-10-26] MEDS ORDERED: acetaminophen 325mg tablet PO ONE (16:40)
[2023-10-26 17:48] LABS: BASOPHILS # (AUTO) 0.1 X10'3 (0-0.2); BASOPHILS % (AUTO) 1.5 % (0-1); EOSINOPHILS % (AUTO) 0.6 % (0-6); HEMATOCRIT 37.7 % (35.0-45.0); HEMOGLOBIN 12.7 g/dl (12.0-16.0); LYMPHOCYTES # (AUTO) 1.2 X10'3 (1.1-4.8); LYMPHOCYTES % (AUTO) 18.4 % (21-51); MEAN CORPUSCULAR HEMOGLOBIN 30.7 PG (27.0-31.0); MEAN CORPUSCULAR HGB CONC 33.8 g/dL (33.0-36.5); MEAN CORPUSCULAR VOLUME 90.7 FL (78-98); MEAN PLATELET VOLUME 8.9 FL (7.4-10.4); MONOCYTES # (AUTO) 0.6 X10'3 (0-0.9); NEUTROPHILS # (AUTO) 4.5 X10'3 (1.8-7.7); NEUTROPHILS % (AUTO) 70.5 % (42-75); PLATELET COUNT 209 X10'3 (140-440); RED BLOOD COUNT 4.15 X10'6 (4.20-5.60); RED CELL DISTRIBUTION WIDTH 13.2 % (11.5-14.5); WHITE BLOOD COUNT 6.3 X10'3 (4.5-11.0)
[2023-10-26 18:00] LABS: ALANINE AMINOTRANSFERASE 36 U/L (12-78); ALBUMIN 3.7 G/DL (3.4-5.0); ALBUMIN/GLOBULIN RATIO 0.9 (1.1-1.5); ALKALINE PHOSPHATASE 97 IU/L (46-116); ANION GAP 15 (8-16); ASPARTATE AMINO TRANSFERASE 22 U/L (10-37); BILIRUBIN,TOTAL 0.3 MG/DL (0.1-1.0); BLOOD UREA NITROGEN 9 MG/DL (7-18); BUN/CREATININE RATIO 9.3 (10.0-20.0); CALCIUM 8.6 MG/DL (8.5-10.1); CHLORIDE 100 MMOL/L (99-107); CREATININE 0.97 MG/DL (0.40-0.90); GLUCOSE 93 MG/DL (70-104); POTASSIUM 3.3 MMOL/L (3.5-5.1); SODIUM 135 MMOL/L (135-145); TOTAL CARBON DIOXIDE 20.2 MMOL/L (24-32); TOTAL PROTEIN 7.7 G/DL (6.4-8.2); eCRCL 67 ML/MIN; eGFR 64 ML/MIN
[2023-10-26 18:08] LABS: PRO BRAIN NATRIURETIC PEPTIDE 106 PG/ML (0-125)
[2023-10-26 18:12] LABS: D-DIMER 1.05 MG/L FEU (0-0.50)
[2023-10-26] MEDS ORDERED: REMDESIVIR INJ 200 MG in normal saline 100ml IV soln 100 ML IV ONE (18:25)
[2023-10-26 18:32] LABS: BILIRUBIN,URINE NEGATIVE (Neg); CLARITY,URINE CLEAR (Clear); COLOR,URINE YELLOW (Yellow); GLUCOSE, URINE 500 mg/dl (Neg); KETONES,URINE 15 mg/dl (Neg); LEUKOCYTE ESTERASE ,URINE NEGATIVE (Neg); NITRITES, URINE NEGATIVE (Neg); OCCULT BLOOD,URINE NEGATIVE (Neg); PH,URINE 5.5 (4.8-8.0); PROTEIN,URINE TRACE mg/dl (Neg); UROBILINOGEN,URINE 0.2 E.U/dL (0.2-1.0)
[2023-10-26 18:37] LABS: UA COLLECTION TYPE CLN CATCH MIDSTREAM
[2023-10-26] MEDS ORDERED: metoprolol succinate 25mg (24-HOUR) SR. Tablet PO ONE (19:05)
[2023-10-26 19:09] LABS: BACTERIA,URINE 4+ /HPF (Neg); MUCUS STRANDS MANY /LPF (Neg); RBC,URINE NONE SEEN /HPF (0-2); SQUAMOUS EPITHELIAL CELL,UR FEW /LPF (FEW); WBC,URINE 0-4 /HPF (0-4)
[2023-10-26] MEDS ORDERED: HYDROcodone/acetaminophen 5mg/325mg tablet PO ONE (20:15)
[2023-10-26] MEDS ORDERED: diphenhydrAMINE 25mg capsule PO PRN (20:35)
[2023-10-26] MEDS ORDERED: potassium Cl 20 mEq SR tablet PO PRN ×2 (20:35)
[2023-10-26] MEDS ORDERED: metoclopramide 5 mg/ml inj IV PRN (20:35)
[2023-10-26] MEDS ORDERED: acetaminophen 650mg rectal suppository RC PRN (20:35)
[2023-10-26] MEDS ORDERED: bisacodyl 10mg suppository rectal RC PRN (20:35)
[2023-10-26] MEDS ORDERED: diphenhydrAMINE 50 mg/ml inj IV PRN (20:35)
[2023-10-26] MEDS: potassium Cl 20mEq in NS 1,000 ML IV SCH (20:35)
[2023-10-26] MEDS ORDERED: HYDROcodone/acetaminophen 5mg/325mg tablet PO PRN (20:35)
[2023-10-26] MEDS ORDERED: magnesium hydroxide 30ml (MOM) UD suspension PO PRN (20:35)
[2023-10-26] MEDS ORDERED: potassium Cl 40MEQ/1/2NS 520ml 520 ML IV PRN (20:35)
[2023-10-26] MEDS ORDERED: ipratropium/albuterol 3ml nebule NEB PRN (20:35)
[2023-10-26] MEDS ORDERED: mag hydrox/Alum hydrox/simeth 30ml oral suspension PO PRN (20:35)
[2023-10-26] MEDS ORDERED: acetaminophen 325mg tablet PO PRN ×2 (20:35)
[2023-10-26] MEDS ORDERED: ondansetron/PF 4mg/2ml inj IV PRN (20:35)
[2023-10-26] MEDS ORDERED: ondansetron 4mg rapidly disintigrating tab PO PRN (20:35)
[2023-10-26 20:58] LABS: APTT 30 SECONDS (22-32); PROTHROMBIN TIME 10.4 SECONDS (9.0-12.0)
[2023-10-26 20:59] LABS: MAGNESIUM 1.6 MG/DL (1.5-2.4); PHOSPHORUS 2.3 MG/DL (2.3-4.5)
[2023-10-26] MEDS ORDERED: temazepam 15mg capsule PO PRN (21:00)
[2023-10-27 02:47] LABS: BASOPHILS % (AUTO) 0.6 % (0-1); EOSINOPHILS % (AUTO) 0.8 % (0-6); HEMATOCRIT 35.9 % (35.0-45.0); HEMOGLOBIN 12.2 g/dl (12.0-16.0); LYMPHOCYTES # (AUTO) 1.5 X10'3 (1.1-4.8); LYMPHOCYTES % (AUTO) 29.7 % (21-51); MEAN CORPUSCULAR HEMOGLOBIN 30.8 PG (27.0-31.0); MEAN CORPUSCULAR VOLUME 90.7 FL (78-98); MEAN PLATELET VOLUME 8.6 FL (7.4-10.4); MONOCYTES # (AUTO) 0.6 X10'3 (0-0.9); MONOCYTES % (AUTO) 12.8 % (2-12); NEUTROPHILS # (AUTO) 2.8 X10'3 (1.8-7.7); NEUTROPHILS % (AUTO) 56.1 % (42-75); PLATELET COUNT 191 X10'3 (140-440); RED BLOOD COUNT 3.96 X10'6 (4.20-5.60); RED CELL DISTRIBUTION WIDTH 13.2 % (11.5-14.5); WHITE BLOOD COUNT 4.9 X10'3 (4.5-11.0)
[2023-10-27 03:03] LABS: ALANINE AMINOTRANSFERASE 33 U/L (12-78); ALBUMIN 3.2 G/DL (3.4-5.0); ALBUMIN/GLOBULIN RATIO 0.9 (1.1-1.5); ALKALINE PHOSPHATASE 85 IU/L (46-116); ANION GAP 9 (8-16); ASPARTATE AMINO TRANSFERASE 15 U/L (10-37); BILIRUBIN,TOTAL 0.2 MG/DL (0.1-1.0); BLOOD UREA NITROGEN 10 MG/DL (7-18); CALCIUM 8.2 MG/DL (8.5-10.1); CHLORIDE 103 MMOL/L (99-107); CREATININE 0.77 MG/DL (0.40-0.90); GLUCOSE 109 MG/DL (70-104); MAGNESIUM 1.9 MG/DL (1.5-2.4); POTASSIUM 3.3 MMOL/L (3.5-5.1); SODIUM 135 MMOL/L (135-145); TOTAL CARBON DIOXIDE 23.5 MMOL/L (24-32); TOTAL PROTEIN 6.9 G/DL (6.4-8.2); eCRCL 85 ML/MIN; eGFR 83 ML/MIN
[2023-10-27] MEDS: potassium Cl 20mEq in NS 1,000 ML IV SCH ×2 (06:35→16:35)
[2023-10-27] MEDS: pantoprazole 40mg Tablet.DR PO SCH (07:30)
[2023-10-27] MEDS: CefTRIAXone/D5W-Rocephin 1gm 50 ML IV SCH (08:50)
[2023-10-27] MEDS: enoxaparin 40mg/0.4ml syringe SUBCUT SCH ×2 (08:50→20:27)
[2023-10-27] MEDS: azithromycin/NS 500mg/250ml 250 ML IV SCH (08:50)
[2023-10-27] MEDS: dexamethasone 4mg/ml inj IV SCH ×2 (08:50→20:28)
[2023-10-27] MEDS: docusate sod 100mg capsule PO SCH ×2 (08:51→20:00)
[2023-10-27] MEDS: HYDROcodone/acetaminophen 10/325mg tab PO PRN ×2 (09:03→21:09)
[2023-10-27 09:50] VITALS: PULSE 88; RESP 18; O2SAT 96
[2023-10-27] MEDS ORDERED: PERFLUTREN PROTEIN-A MICROSPHR (Optison) 0.22 MG/ML 3ML VIAL IV ONE ×2 (10:15)
[2023-10-27 12:10] LABS: C-REACTIVE PROTEIN 4.46 MG/DL (0.0-0.5)
[2023-10-27] MEDS ORDERED: iohexol 350MG/ML 100ml bottle IV ONE (12:15)
[2023-10-27 21:19] VITALS: PULSE 89; RESP 18; O2SAT 96
[2023-10-27 22:00] VITALS: BP 128/75; PULSE 68; RESP 18; TEMP 97.8; O2SAT 98
[2023-10-28 02:00] VITALS: BP 124/68; PULSE 62; RESP 18; TEMP 97.6; O2SAT 98
[2023-10-28 06:00] VITALS: BP 99/58; PULSE 75; RESP 14; TEMP 97.9; O2SAT 96
[2023-10-28 08:00] VITALS: RESP 14; O2SAT 96
[2023-10-28] MEDS ORDERED: dexamethasone sod phosphate 10mg/ml inj IV SCH (08:00)
[2023-10-28] MEDS: CefTRIAXone/D5W-Rocephin 1gm 50 ML IV SCH (08:11)
[2023-10-28] MEDS: pantoprazole 40mg Tablet.DR PO SCH (08:18)
[2023-10-28] MEDS: docusate sod 100mg capsule PO SCH (08:18)
[2023-10-28] MEDS: enoxaparin 40mg/0.4ml syringe SUBCUT SCH (08:19)
[2023-10-28] MEDS: azithromycin/NS 500mg/250ml 250 ML IV SCH (09:09)
[2023-10-28] MEDS ORDERED: pneumococcal 23-VAL P-sac vacc 25 mcg/0.5ml vial IMVAC ONE (10:00)
[2023-10-28] MEDS ORDERED: FLU VACC QS2023-24(6MOS UP)/PF 60 MCG/0.5 ML SYRINGE IM ONE (10:00)
[2023-10-28 10:55] LABS: ALANINE AMINOTRANSFERASE 30 U/L (12-78); ALBUMIN 3.1 G/DL (3.4-5.0); ALBUMIN/GLOBULIN RATIO 0.8 (1.1-1.5); ALKALINE PHOSPHATASE 75 IU/L (46-116); ANION GAP 8 (8-16); ASPARTATE AMINO TRANSFERASE 15 U/L (10-37); BILIRUBIN,TOTAL 0.1 MG/DL (0.1-1.0); BLOOD UREA NITROGEN 12 MG/DL (7-18); BUN/CREATININE RATIO 16.7 (10.0-20.0); C-REACTIVE PROTEIN 2.31 MG/DL (0.0-0.5); CALCIUM 8.5 MG/DL (8.5-10.1); CHLORIDE 104 MMOL/L (99-107); CREATININE 0.72 MG/DL (0.40-0.90); GLUCOSE 136 MG/DL (70-104); LACTATE DEHYDROGENASE 150 U/L (81-234); POTASSIUM 3.8 MMOL/L (3.5-5.1); SODIUM 134 MMOL/L (135-145); TOTAL CARBON DIOXIDE 21.9 MMOL/L (24-32); TOTAL PROTEIN 6.9 G/DL (6.4-8.2); eCRCL 91 ML/MIN; eGFR 90 ML/MIN
[2023-10-28 11:00] VITALS: BP 104/57; PULSE 86; RESP 18; TEMP 97.7; O2SAT 95
[2023-10-28] MEDS ORDERED: DEXA6TAB PO (12:21)
== END 2023-10-28 14:45 | disposition home or self-care (01) | DRG 137 ==
LOC: ER 14:40 → ED HOLD 20:42 → EDBEDREQ 10-27 02:34 → PCU 3S 10-27 22:59
PROVIDERS: ADMIT Family Medicine; ATTEND Family Medicine
PROC: XW033E5 Introduction of Remdesivir Anti-infective into Peripheral Vein, Percutaneous Approach, New Technology Group 5 (ICD-10-PCS; principal; 2023-10-26)
DX: U07.1 COVID-19 (principal); J96.01 Acute respiratory failure with hypoxia; J12.82 Pneumonia due to coronavirus disease 2019; I11.0 Hypertensive heart disease with heart failure; E87.6 Hypokalemia; E87.20 Acidosis, unspecified; I42.9 Cardiomyopathy, unspecified; F19.11 Other psychoactive substance abuse, in remission; I50.22 Chronic systolic (congestive) heart failure; Z87.891 Personal history of nicotine dependence; Z79.899 Other long term (current) drug therapy; Z88.5 Allergy status to narcotic agent; Z59.00 Homelessness unspecified
CPT/HCPCS: 36415; 71045; 71250; 71275; 80053; 81001; 83605; 83615; 83735; 83880; 84100; 84132; 84145; 84484; 85025; 85379; 85610; 85730; 86140; 87040; 87081; 87811; 90686; 90732; 93306; 94760; 99285; G0378; J0456; J0696; J1100; J1650; J2405; J3480; J3490; J7040; Q9967

== ENCOUNTER 2023-11-05 04:52 | Emergency (ER) | payer MEDICAID ==
[~2023-11-05] VITALS: Ht 162.6 cm; Wt 74.0 kg
[~2023-11-05 04:52] MED LIST changes: +DEXA6TAB PO
[2023-11-05 07:21] LABS: BASOPHILS % (AUTO) 0.1 % (0-1); EOSINOPHILS # (AUTO) 0.1 X10'3 (0-0.9); EOSINOPHILS % (AUTO) 0.8 % (0-6); HEMATOCRIT 36.1 % (35.0-45.0); HEMOGLOBIN 11.8 g/dl (12.0-16.0); LYMPHOCYTES # (AUTO) 4.9 X10'3 (1.1-4.8); LYMPHOCYTES % (AUTO) 33.7 % (21-51); MEAN CORPUSCULAR HEMOGLOBIN 30.1 PG (27.0-31.0); MEAN CORPUSCULAR HGB CONC 32.8 g/dL (33.0-36.5); MEAN CORPUSCULAR VOLUME 91.7 FL (78-98); MEAN PLATELET VOLUME 7.6 FL (7.4-10.4); MONOCYTES # (AUTO) 1.3 X10'3 (0-0.9); MONOCYTES % (AUTO) 8.7 % (2-12); NEUTROPHILS # (AUTO) 8.3 X10'3 (1.8-7.7); NEUTROPHILS % (AUTO) 56.7 % (42-75); PLATELET COUNT 330 X10'3 (140-440); RED BLOOD COUNT 3.93 X10'6 (4.20-5.60); RED CELL DISTRIBUTION WIDTH 13.6 % (11.5-14.5); WHITE BLOOD COUNT 14.6 X10'3 (4.5-11.0)
[2023-11-05 07:32] LABS: APTT 24 SECONDS (22-32); PROTHROMBIN TIME 9.8 SECONDS (9.0-12.0)
[2023-11-05 07:47] LABS: ALANINE AMINOTRANSFERASE 51 U/L (12-78); ALBUMIN/GLOBULIN RATIO 0.8 (1.1-1.5); ALKALINE PHOSPHATASE 79 IU/L (46-116); ANION GAP 7 (8-16); ASPARTATE AMINO TRANSFERASE 16 U/L (10-37); BILIRUBIN,TOTAL 0.2 MG/DL (0.1-1.0); BLOOD UREA NITROGEN 21 MG/DL (7-18); BUN/CREATININE RATIO 28.4 (10.0-20.0); CALCIUM 8.5 MG/DL (8.5-10.1); CHLORIDE 103 MMOL/L (99-107); CREATININE 0.74 MG/DL (0.40-0.90); GLUCOSE 95 MG/DL (70-104); POTASSIUM 3.5 MMOL/L (3.5-5.1); SODIUM 138 MMOL/L (135-145); TOTAL CARBON DIOXIDE 27.7 MMOL/L (24-32); TOTAL PROTEIN 6.6 G/DL (6.4-8.2); eCRCL 88 ML/MIN; eGFR 87 ML/MIN
[2023-11-05 07:53] LABS: INR 0.9 INR; PRO BRAIN NATRIURETIC PEPTIDE 114 PG/ML (0-125)
[2023-11-05 07:58] LABS: DIGOXIN 0.8 NG/ML (0.9-1.9)
[2023-11-05 08:13] LABS: URINE HCG NEGATIVE (NEG)
[2023-11-05 08:36] LABS: URINE AMPHETAMINE SCREEN NEGATIVE (Neg); URINE BARBITUATE SCREEN NEGATIVE (Neg); URINE BENZODIAZEPINES SCREEN NEGATIVE (Neg); URINE CANNABINOID SCREEN NEGATIVE (Neg); URINE COCAINE SCREEN NEGATIVE (Neg); URINE METHADONE SCREEN NEGATIVE (Neg); URINE OPIATE SCREEN NEGATIVE (Neg); URINE PHENCYCLIDINE SCREEN NEGATIVE (Neg)
[2023-11-05 10:01] VITALS: TEMP 97.8
[2023-11-05] MEDS ORDERED: FURO-150 PO (12:41)
[2023-11-05 13:38] VITALS: BP 115/74; PULSE 71; RESP 16; O2SAT 97
== END 2023-11-05 13:39 | disposition home or self-care (01) ==
LOC: ER 04:53
DX: R60.0 Localized edema (principal); I11.0 Hypertensive heart disease with heart failure; F15.10 Other stimulant abuse, uncomplicated; Z88.5 Allergy status to narcotic agent; Z79.899 Other long term (current) drug therapy
CPT/HCPCS: 36415; 71045; 80053; 80162; 80305; 81025; 83880; 84484; 85025; 85610; 85730; 93005; 93970; 99285

== ENCOUNTER 2024-06-24 10:04 | Emergency (ER) | payer MEDICAID ==
[~2024-06-24] VITALS: Ht 162.6 cm; Wt 65.5 kg
[2024-06-24 10:05] VITALS: TEMP 97.8
[2024-06-24 10:28] LABS: URINE HCG NEGATIVE (NEG)
[2024-06-24 10:37] LABS: BILIRUBIN,URINE NEGATIVE (Neg); CLARITY,URINE CLOUDY (Clear); COLOR,URINE YELLOW (Yellow); GLUCOSE, URINE >=1000 mg/dl (Neg); KETONES,URINE NEGATIVE (Neg); LEUKOCYTE ESTERASE ,URINE TRACE (Neg); NITRITES, URINE POSITIVE (Neg); OCCULT BLOOD,URINE LARGE (Neg); PH,URINE 6.5 (4.8-8.0); PROTEIN,URINE 100 mg/dl (Neg); UROBILINOGEN,URINE 0.2 E.U/dL (0.2-1.0)
[2024-06-24 10:40] LABS: UA COLLECTION TYPE CLN CATCH MIDSTREAM
[2024-06-24 10:43] LABS: SQUAMOUS EPITHELIAL CELL,UR FEW /LPF (FEW); WBC,URINE 50-100 /HPF (0-4)
[2024-06-24 10:44] LABS: BACTERIA,URINE 3+ /HPF (Neg)
[2024-06-24] MEDS ORDERED: CIPR-259 PO (11:18)
[2024-06-24 11:20] VITALS: BP 93/65; PULSE 80; RESP 16; O2SAT 98
[2024-06-24] MEDS ORDERED: PHEN-716 PO (18:51)
[2024-06-24] MEDS ORDERED: HYDR-3973 PO (18:51)
== END 2024-06-24 11:22 | disposition home or self-care (01) ==
LOC: ER 10:04
DX: N10 Acute pyelonephritis (principal); N20.0 Calculus of kidney; N39.0 Urinary tract infection, site not specified; I11.0 Hypertensive heart disease with heart failure; I50.9 Heart failure, unspecified; F15.90 Other stimulant use, unspecified, uncomplicated; Z87.440 Personal history of urinary (tract) infections; Z79.2 Long term (current) use of antibiotics; Z79.899 Other long term (current) drug therapy; Z88.5 Allergy status to narcotic agent
CPT/HCPCS: 81001; 81025; 87077; 87088; 87186; 99283

== ENCOUNTER 2024-06-24 16:17 | Emergency (ER) | payer MEDICAID ==
[~2024-06-24] VITALS: Ht 162.6 cm; Wt 66.6 kg
[~2024-06-24 16:17] MED LIST changes: +CIPR-259 PO
[2024-06-24 16:24] VITALS: TEMP 98.3
[2024-06-24] MEDS: CefTRIAXone 2gm/D5W 50ml BAG 50 ML IV ONE (17:19)
[2024-06-24] MEDS: normal saline 1000ML IV soln IV ONE (17:19)
[2024-06-24] MEDS: acetaminophen 1,000mg/100ml IV 100 ML IV ONE (17:34)
[2024-06-24 18:02] LABS: URINE HCG NEGATIVE (NEG)
[2024-06-24 18:10] LABS: BILIRUBIN,URINE NEGATIVE (Neg); CLARITY,URINE CLOUDY (Clear); COLOR,URINE YELLOW (Yellow); GLUCOSE, URINE >=1000 mg/dl (Neg); KETONES,URINE NEGATIVE (Neg); LEUKOCYTE ESTERASE ,URINE SMALL (Neg); NITRITES, URINE POSITIVE (Neg); OCCULT BLOOD,URINE LARGE (Neg); PROTEIN,URINE 100 mg/dl (Neg); UROBILINOGEN,URINE 0.2 E.U/dL (0.2-1.0)
[2024-06-24 18:13] LABS: ALBUMIN 3.6 G/DL (3.4-5.0); ANION GAP 8 (8-16); BLOOD UREA NITROGEN 14 MG/DL (7-18); BUN/CREATININE RATIO 16.1 (10.0-20.0); CALCIUM 8.7 MG/DL (8.5-10.1); CHLORIDE 102 MMOL/L (99-107); CREATININE 0.87 MG/DL (0.40-0.90); GLUCOSE 90 MG/DL (70-104); MAGNESIUM 1.7 MG/DL (1.5-2.4); POTASSIUM 3.8 MMOL/L (3.5-5.1); SODIUM 134 MMOL/L (135-145); TOTAL CARBON DIOXIDE 24.2 MMOL/L (24-32); eCRCL 74 ML/MIN; eGFR 72 ML/MIN
[2024-06-24 18:17] LABS: UA COLLECTION TYPE CLN CATCH MIDSTREAM
[2024-06-24 18:22] LABS: SQUAMOUS EPITHELIAL CELL,UR NONE SEEN /LPF (FEW); WBC,URINE TNTC /HPF (0-4)
[2024-06-24 18:23] LABS: BACTERIA,URINE FEW /HPF (Neg); RBC,URINE 50-100 /HPF (0-2)
[2024-06-24 18:30] LABS: BASOPHILS % (AUTO) 0.3 % (0-1); EOSINOPHILS # (AUTO) 0.1 X10'3 (0-0.9); EOSINOPHILS % (AUTO) 0.6 % (0-6); HEMATOCRIT 36.4 % (35.0-45.0); HEMOGLOBIN 12.1 g/dl (12.0-16.0); LYMPHOCYTES # (AUTO) 1.8 X10'3 (1.1-4.8); LYMPHOCYTES % (AUTO) 20.1 % (21-51); MEAN CORPUSCULAR HEMOGLOBIN 30.9 PG (27.0-31.0); MEAN CORPUSCULAR HGB CONC 33.3 g/dL (33.0-36.5); MEAN CORPUSCULAR VOLUME 92.8 FL (78-98); MONOCYTES # (AUTO) 0.7 X10'3 (0-0.9); MONOCYTES % (AUTO) 7.7 % (2-12); NEUTROPHILS # (AUTO) 6.2 X10'3 (1.8-7.7); NEUTROPHILS % (AUTO) 71.3 % (42-75); PLATELET COUNT 218 X10'3 (140-440); RED BLOOD COUNT 3.92 X10'6 (4.20-5.60); RED CELL DISTRIBUTION WIDTH 13.1 % (11.5-14.5); WHITE BLOOD COUNT 8.7 X10'3 (4.5-11.0)
[2024-06-24 18:40] LABS: ACETONE NEGATIVE (NEGATIVE)
[2024-06-24 18:42] VITALS: BP 146/101; PULSE 83; RESP 16; O2SAT 98
[2024-06-24] MEDS ORDERED: HYDR-3973 PO (18:51)
[2024-06-24] MEDS ORDERED: PHEN-716 PO (18:51)
[2024-06-24] MEDS: HYDROcodone/acetaminophen 10/325mg tab PO ONE (19:19)
== END 2024-06-24 19:21 | disposition home or self-care (01) ==
LOC: ER 16:18
DX: N39.0 Urinary tract infection, site not specified (principal); I50.9 Heart failure, unspecified; I11.0 Hypertensive heart disease with heart failure; F15.90 Other stimulant use, unspecified, uncomplicated; Z88.6 Allergy status to analgesic agent; Z79.2 Long term (current) use of antibiotics; Z79.899 Other long term (current) drug therapy; Z86.19 Personal history of other infectious and parasitic diseases; Z87.440 Personal history of urinary (tract) infections
CPT/HCPCS: 36415; 71045; 80048; 81001; 81025; 82009; 83605; 83735; 84145; 85025; 87040; 87088; 93005; 96365; 96368; 99285; J0131; J0696; J7030

== ENCOUNTER 2024-10-27 08:48 | Emergency (ER) | payer MEDICAID ==
[~2024-10-27] VITALS: Ht 162.6 cm; Wt 70.5 kg
[~2024-10-27 08:48] MED LIST changes: -CIPR-259 PO; +METH-798 PO; +PHEN-716 PO; +PRED50TA PO
[2024-10-27] MEDS: ipratropium/albuterol 3ml nebule NEB STA (11:03)
[2024-10-27 11:06] VITALS: PULSE 65; RESP 18; O2SAT 98
[2024-10-27] MEDS: dexamethasone sod phosphate 10mg/ml inj IM STA (11:06)
[2024-10-27 11:10] VITALS: PULSE 79; RESP 18; O2SAT 98
[2024-10-27] MEDS ORDERED: PROM118S5 PO (11:18)
[2024-10-27] MEDS ORDERED: AZIT250T89 PO (11:18)
[2024-10-27] MEDS ORDERED: PRED20TA PO (11:18)
[2024-10-27] MEDS ORDERED: ALBU8HFA INH (11:18)
[2024-10-27] MEDS: acetaminophen w/codeine (30MG) #3 tablet PO ONE (11:51)
[2024-10-27 11:53] VITALS: BP 132/76; PULSE 78; RESP 18; TEMP 98.6; O2SAT 98
== END 2024-10-27 11:57 | disposition home or self-care (01) ==
LOC: ER 08:49
DX: B34.9 Viral infection, unspecified (principal); I11.0 Hypertensive heart disease with heart failure; I50.9 Heart failure, unspecified; Z87.891 Personal history of nicotine dependence; Z88.5 Allergy status to narcotic agent; Z20.822 Contact with and (suspected) exposure to COVID-19
CPT/HCPCS: 36415; 71045; 87502; 87503; 87811; 94640; 96372; 99291; J1100; 94760

== ENCOUNTER 2025-01-09 13:06 | Emergency (ER) | payer MEDICAID ==
[~2025-01-09] VITALS: Ht 162.6 cm; Wt 66.2 kg
[2025-01-09 13:13] VITALS: BP 133/86; PULSE 72; RESP 16; TEMP 97.7; O2SAT 96
[2025-01-09] MEDS: acetaminophen 325mg tablet PO ONE (14:47)
== END 2025-01-09 14:51 | disposition home or self-care (01) ==
LOC: ER 13:07
DX: J06.9 Acute upper respiratory infection, unspecified (principal); F15.90 Other stimulant use, unspecified, uncomplicated; I11.0 Hypertensive heart disease with heart failure; I50.9 Heart failure, unspecified; Z88.5 Allergy status to narcotic agent; Z79.899 Other long term (current) drug therapy; Z20.822 Contact with and (suspected) exposure to COVID-19
CPT/HCPCS: 36415; 71046; 87502; 87503; 87811; 99284